=== PATIENT | male | born 1995 | race Caucasian/White ===

== ENCOUNTER 2023-04-22 08:13 | Outpatient (CLI) | payer MEDICAID, SELFPAY ==
--- NOTE | ~2023-04-22 | CT_ITS ---
EXAMINATION: CT diagnostic chest w con DATE: 04/22/2023 08:53 INDICATION: Chest pain, shortness of breath, cough TECHNIQUE: Transaxial computed tomographic images of the chest were obtained after the administration of 75 cc of Omnipaque 350 intravenous contrast. The dose-length product (DLP) was 124.62 mGy-cm. Ite rative reconstruction was used. COMPARISON: None FINDINGS: There is a large right hydropneumothorax. There is moderate collapse of the right lung. The re are airspace opacities in the right lower lobe with at least two visible areas of cavitation. Ther e are are airspace opacities anteriorly in the right middle and upper lobes. There is a cavitary nodu le in the right lung apex which erodes through the pleural surface and appears to tether the lung ape x to the visceral pleural surface. There is mild pneumomediastinum inferiorly near the esophagus and inferior vena cava. The heart size is normal. The visualized osseous structures are unremarkable. IMPRESSION: 1. Large right hydropneumothorax. 2. Multifocal right-sided pneumonia, worst in the right lower lobe, with areas of cavitation in the r ight lower lobe and right lung apex. The right apical cavitation erodes through the pleural surface. These findings were discussed with Juan Guevara PA-C at 0905 hours on 04/22/2023. Patient will be se nt to the emergency Department. Reviewed, dictated and finalized at location B. IMPRESSION: 1. Large right hydropneumothorax. 2. Multifocal right-sided pneumonia, worst in the right lower lobe, with areas of cavitation in the right lower lobe and right lung apex. The right apical cav itation erodes through the pleural surface. These findings were discussed with Juan Guevara PA-C at 0905 hours on 04/22/20. Patient will be sent to the emergency Department.
== END 2023-04-22 08:14 | disposition home or self-care (01) ==
PROVIDERS: PCP Family Medicine; Visit Provider Physician Assistant
DX: J98.4 Other disorders of lung (principal); R05.9 Cough, unspecified
CPT/HCPCS: 71260; Q9967

== ENCOUNTER 2023-04-22 09:20 | Emergency (ER) | payer MEDICAID, SELFPAY ==
[2023-04-22 09:31] VITALS: BP 139/80; PULSE 93; RESP 20; TEMP 36.7; O2SAT 97
--- NOTE | 2023-04-22 09:37 | ECG_ITS ---
Measurements Intervals [place] Rate: 90 P: 71 NE: 148 QRS: 71 QRSD: 96 T: 14 QT: 326 QTc: 400 Interpretive Statements SINUS RHYTHM POSSIBLE LEFT ATRIAL ENLARGEMENT INCOMPLETE RIGHT BUNDLE BRANCH BLOCK BASELINE ARTIFACT- I, III, AVL BORDERLINE ECG NO PREVIOUS ECG AVAILABLE FOR COMPARISON Electronically Signed On 04-22-2023 13:03:05 CDT by Nolan Flores D.O.
[2023-04-22 09:54] VITALS: PULSE 101
[2023-04-22 09:57] VITALS: O2SAT 98
[2023-04-22] MEDS: SODIUM CHLORIDE 0.9% IV 1,000 ML 999 ML IV CONT (10:00)
[2023-04-22 10:10] LABS: Basophils Absolute Auto 0.1 K/mm3 (0.0-0.1); Basophils Percent Auto 0.3 % (0.2-1.2); Eosinophils Absolute Auto 0.8 K/mm3 (0-0.3); Eosinophils Percent Auto 5.4 % (0-4.4); Hematocrit 46.2 % (42.0-52.0); Hemoglobin 16.1 g/dL (14.0-18.0); Immature Granulocyte Absolute 0.07 K/mm3 (0.00-0.031); Immature Granulocyte Percent A 0.5 % (0-0.5); Lymphocytes Absolute Auto 1.59 K/mm3 (0.9-3.2); Mean Corpuscular HGB Conc 34.8 g/dl (32-36); Mean Corpuscular Hemoglobin 32.6 pg (26-34); Mean Corpuscular Volume 93.5 fl (80-100); Mean Platelet Volume 10.4 fl (7.4-10.4); Monocytes Absolute Auto 1.7 K/mm3 (0.1-0.6); Monocytes Percent Auto 11.6 % (2.6-8.5); Neutrophils Absolute Auto 10.3 K/mm3 (1.3-6.7); Neutrophils Percent Auto 71.2 % (45.5-73.1); Platelet Count Result 319 k/mm3 (150-375); Red Blood Count 4.94 M/mm3 (4.6-6.20); Red Cell Distribution Width 12.4 % (11.5-14.5); White Blood Count 14.5 K/mm3 (4.5-10.0)
[2023-04-22 10:20] LABS: Lactic Acid Reflex 1.1 mmol/L (0.7-2.0)
[2023-04-22 10:23] LABS: Prothrombin Time 14.2 Seconds (11.1-14.7)
[2023-04-22] MEDS: levoFLOXacin 750 MG/D5W 150 ML 750 MG/150 ML BAG 100 MG IVPB (10:31)
[2023-04-22 10:34] VITALS: BP 108/56; PULSE 78; RESP 16; O2SAT 97
--- NOTE | 2023-04-22 10:47 | ED.SOB ---
HPI - SOB/Dyspnea General Chief Complaint: Shortness of Breath/Dyspnea Stated Complaint: from CT with concerns for collapsed lung? Time Seen by Provider: 04/22/23 09:24 Source: patient, family, RN notes reviewed and old records reviewed Mode of arrival: ambulatory Limitations: no limitations History of Present Illness HPI Narrative: This is a 27 year old male who presents for evaluation of right chest pain. He states he develop sharp right chest pain 1 week ago. He denies any proceeding trauma, vomiting or severe coughing. He is pain has continued so he was evaluated at an urgent care a few days ago. His PCP saw him today and ordered stat CT chest which shows large hydropneumothorax, pneumomediastinum. He reports night sweats, low grade fever for past couple of days. He denies nausea, vomiting, shortness of breath. He has mild dry cough. MD elicited complaint: cough and pain with inspiration Related Data Allergies Allergy/AdvReac Type Severity Reaction Status Date / Time Penicillins AdvReac Intermediate Difficulty Verified 04/22/23 09:20 Breathing amoxicillin [From Augmentin] AdvReac Mild Difficulty Verified 04/22/23 09:20 Breathing clavulanic acid AdvReac Mild Difficulty Verified 04/22/23 09:20 [From Augmentin] Breathing Review of Systems Constitutional: Constitutional: Reports chills, Reports fever(s) and Denies weakness Comments: night sweats Cardiovascular: Cardiovascular: Reports chest pain (right chest pain), Denies syncope, Denies rapid heart rate, Denies irregular heart rhythm, Denies leg edema and Denies dyspnea Respiratory: Respiratory: Denies chest congestion, Reports cough, Denies hemoptysis, Denies excessive phlegm production and Denies dyspnea Gastrointestinal: Gastrointestinal: Denies abdominal pain, Denies hematochezia, Denies diarrhea, Denies nausea and Denies vomiting Genitourinary: Genitourinary: Denies hematuria, Denies dysuria, Denies penile discharge and Denies testicular pain Musculoskeletal: Musculoskeletal: Denies joint swelling, Denies loss of height and Denies muscle weakness Neurologic: Denies syncope, Denies focal weakness and Denies weakness PMFSH Past Medical History Medical History Smoking Family History Family History Father Hypertension Mother Hypertension Depression Social History Social History Smoking packs per day: 1 Smoking cigarettes per day: 20.0 Smoking status: Current every day smoker Tobacco type: cigarettes Alcohol intake: current Substance use: never Living arrangements: with family Occupation/Education: occupation Gender identity (if verbalized by the patient): Male Sexual Orientation (if Verbalized by the Patient): Straight or Heterosexual Spiritual care concerns: No Exam Const: General: no acute distress and alert Orientation/consciousness: patient oriented x3 HENMT: Head: normal to inspection Eyes: EOM: EOMs intact bilaterally Chest: Chest palpation & inspection: normal inspection of the chest Resp: Effort & Inspection: normal respiratory effort Auscultation: diminished lung sounds (right side) Cardio: Rate: regular rate Rhythm: regular rhythm Heart sounds: no murmurs GI: GI Palp: Yes Soft to palpation, No Tenderness to palpation present (GI), No Guarding due to palpation present (GI) and No Rigid due to palpation Auscultation: normal bowel sounds Skin: General skin exam: normal color Rashes: no rashes Wounds: no wounds Neuro: General: patient oriented x3, moves all extremities and CN's II-XI intact bilaterally Extrem: General: normal to inspection Psych: Mental Status: mental status grossly normal Affect: normal affect Attitude: cooperative Course Reevaluation(s) Reevaluation #1: I reviewed plan and findings with patient and parents. They understand he will be transferre
[2023-04-22 11:20] VITALS: BP 110/66; PULSE 94; RESP 18; O2SAT 99
== END 2023-04-22 11:23 | disposition short-term general hospital (02) ==
PROVIDERS: Emergency Provider General Practice; PCP Family Medicine
DX: J94.8 Other specified pleural conditions (principal); J98.2 Interstitial emphysema; J98.4 Other disorders of lung; F17.210 Nicotine dependence, cigarettes, uncomplicated
CPT/HCPCS: 36415; 71260; 83605; 85025; 85610; 85730; 87040; 93005; 96361; 96365; 96367; 99285; J1956; J3370; J7030; Q9967

== ENCOUNTER 2023-11-10 13:59 | Outpatient (CLI) | payer MEDICAID, SELFPAY ==
[2023-11-10 15:32] LABS: Basophils Absolute Auto 0.1 K/mm3 (0.0-0.1); Basophils Percent Auto 0.9 % (0.2-1.2); Eosinophils Absolute Auto 0.4 K/mm3 (0-0.3); Eosinophils Percent Auto 5.3 % (0-4.4); Hematocrit 48.9 % (42.0-52.0); Hemoglobin 17.1 g/dL (14.0-18.0); Immature Granulocyte Absolute 0.02 K/mm3 (0.00-0.031); Immature Granulocyte Percent A 0.3 % (0-0.5); Lymphocytes Absolute Auto 2.21 K/mm3 (0.9-3.2); Lymphocytes Percent Auto 33.4 % (18.3-44.2); Mean Corpuscular Hemoglobin 31.9 pg (26-34); Mean Corpuscular Volume 91.2 fl (80-100); Mean Platelet Volume 10.3 fl (7.4-10.4); Monocytes Absolute Auto 0.6 K/mm3 (0.1-0.6); Monocytes Percent Auto 8.6 % (2.6-8.5); Neutrophils Absolute Auto 3.4 K/mm3 (1.3-6.7); Neutrophils Percent Auto 51.5 % (45.5-73.1); Platelet Count Result 310 k/mm3 (150-375); Red Blood Count 5.36 M/mm3 (4.6-6.20); Red Cell Distribution Width 12.9 % (11.5-14.5); White Blood Count 6.6 K/mm3 (4.5-10.0)
== END 2023-11-10 14:00 | disposition home or self-care (01) ==
LOC: ANHLAB 14:02
PROVIDERS: PCP Family Medicine; Visit Provider Physician Assistant
DX: K92.1 Melena (principal)
CPT/HCPCS: 36415; 85025

== ENCOUNTER 2024-12-15 19:31 | Emergency (ER) | payer MEDICAID, SELFPAY ==
[2024-12-15] VITALS (9 sets, daily range): BP systolic 106–132; BP diastolic 67–94; PULSE 43–78; RESP 14–28; TEMP 36.4; O2SAT 97–100
--- NOTE | ~2024-12-15 | CT_ITS ---
EXAMINATION: CTA chest PE abdomen pel DATE: 12/15/2024 21:22 INDICATION: Epigastric pain, history of ptx TECHNIQUE: Computed tomography angiography (CTA) of the chest was performed with 100 mL Omnipaque-350 intravenous contrast timed to evaluate the pulmonary arteries, followed by portal venous phase imagi ng of the abdomen and pelvis. Coronal maximum intensity projection 3D-reconstructions were created by the technologist. The dose-length product (DLP) was 362.14 mGy-cm. Automated exposure control and it erative reconstruction technique were employed. COMPARISON: X-ray chest, same date; CT chest 04/22/2023. FINDINGS: CHEST: Lung parenchyma and airways: 13 mm and 8 mm right upper lobe air cysts, which appear to be associated with adjacent bronchi. The 8 mm lesion is associated with nodular thickening of the wall. There is m ild thickening of the posterior wall of the 13 mm lesion. Bilateral apical pleural scarring. Volume l oss and scarring in the right lower lobe. Pleura: Very small volume simple right pleural fluid collection. Thoracic inlet, axillae and chest wall: No thyroid or soft tissue mass. Thoracic aorta: No significant dilation. No dissection. Mediastinum: Normal. Heart and pericardium: Normal. Coronary artery calcifications: Absent. Thoracic bones: No acute osseous finding. Pulmonary arteries: Study quality: Adequate. No pulmonary emboli detected. ABDOMEN/PELVIS: Liver: Normal. Biliary/Gallbladder: Minimal cholecystic fluid, no other inflammatory change No bile duct dilation. Pancreas: No mass or duct dilation. Spleen: Normal. Adrenals:No mass. Kidneys: No obstructing calcification or hydronephrosis. 8 mm indeterminate density left lower pole l esion, not included in the [id number] in the prior study. GI tract: No small or large bowel dilation. Normal appendix. Mesentery/Peritoneum: No ascites, mass, or free air. Retroperitoneum: No mass. Pelvis: Pelvic organs are within normal limits. Soft Tissues: Soft tissues and body wall unremarkable. Abdominopelvic bones: No acute osseous finding. IMPRESSION: No CT evidence of acute pulmonary embolus. Right upper lobe pneumatoceles, may represent persistent lesions from prior cavitary infection, and a ppear to communicate with adjacent bronchi. Active infection/malignancy is difficult to exclude. Post surgical change in the right lung. Small right pleural effusion. Mild pericholecystic fluid, a nonspecific finding. Consider acute cholecystitis in the differential. 8mm indeterminate left lower pole renal lesion, probably representing a hemorrhagic or proteinaceous cyst. Recommend nonemergent, outpatient CT or MRI without and with contrast for definitive characteri zation. Reviewed, dictated and finalized at location K. IMPRESSION: No CT evidence of acute pulmonary embolus. Right upper lobe pneumatoceles, may represent persistent lesions from prior cav itary infection, and appear to communicate with adjacent bronchi. Active infect ion/malignancy is difficult to exclude. Post surgical change in the right lung. Small right pleural effusion. Mild pericholecystic fluid, a nonspecific finding. Consider acute cholecystitis in the differential. 8mm indeterminate left lower pole renal lesion, probably representing a hemorrh agic or proteinaceous cyst. Recommend nonemergent, outpatient CT or MRI without and with contrast for definitive characterization.
--- NOTE | ~2024-12-15 | XR_ITS ---
EXAMINATION: XR chest 2V Exam Date/Time: 12/15/2024 19:53 CDT HISTORY: CHEST PAIN, patient states status post right lower lobe pneumonectomy Comparison: 11/11/2006. RESULT: Lines, tubes, and devices: None. Lungs and pleura: No focal consolidation, or pneumothorax. Lateral shift of the apex of the right he midiaphragm shadow. Suggestion of right hemithorax volume loss Mild right costophrenic angle blunting . Cardiomediastinal silhouette: Unremarkable. Other: No acute osseous or upper abdominal finding. IMPRESSION: Small right pleural effusion, likely with a subpulmonic component and/or postsurgical change in the r ight hemithorax and right lung. Reviewed, dictated and finalized at location K. IMPRESSION: Small right pleural effusion, likely with a subpulmonic component and/or postsu rgical change in the right hemithorax and right lung.
--- OUTSIDE RECORDS SUMMARY | 2024-12-15 19:33 | XMS_ITS | Clinical Summary ---
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 Gender Identity Not on file Sexual Orientation Not on file Obstetrics History Last Filed Vital Signs Vital Sign Reading Time Taken Comments Blood Pressure 132/72 04/17/2023 3:40 PM CDT Pulse 54 04/17/2023 3:40 PM CDT Temperature 36.9 C (98.4 F) 04/17/2023 3:40 PM CDT Respiratory Rate 16 04/17/2023 3:40 PM CDT Oxygen Saturation 100% 04/17/2023 3:40 PM CDT Inhaled Oxygen Concentration - - Weight 63.1 kg (139 lb 1.6 oz) 04/17/2023 3:40 P M CDT Height 170.2 cm (5' 7 ) 04/17/2023 3:40 PM CDT Body Mass Index 21.79 04/17/2023 3:40 PM CDT Plan of Treatment Health Maintenance Due Date Last Done Comments Depression Screening 1996 Hepatitis C Screening 1996 Varicella Vaccines (2 of 2 - 2-dose childhood series) 2000 06/17/1997 DTaP/Tdap/Td Vaccine (5 - Tdap) 2007 01/01/1998, 1996, 1996, Additional history exists Regular Well Visit/Exam 18-64 2014 Covid-19 Vaccine ( season) 2024 07/06/2021, 01/02/2021, 12/12/2020 Influenza Vaccine (#1) 2024 06/03/2018 Hepatitis B Screening Completed 1996 , 1996, 1996 HPV Vaccines Aged Out No longer eligi ble based on patient's age to complete this topic Pneumococcal vaccine <65 Aged Out No longer eligible based on patient's age to complete this topic Insurance IDPA Care Teams Machining Engineer Relationship Specialty Start Date End Date Kurtis Goins MD [address] [facility] [address] [place], [place] [id number] PCP - General Family Medicine 04/17/23
--- OUTSIDE RECORDS SUMMARY | 2024-12-15 19:33 | XMS_ITS | Referral Summary ---
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
--- OUTSIDE RECORDS SUMMARY | 2024-12-15 19:33 | XMS_ITS | Encounter Summary ---
Author Organization [facility] Health Address [address] [facility] [place] [address] Care Team Providers Care Multiple Sclerosis Nurse Name Role Phone Kurtis Goins MD Primary Care Provider [phone] Encounter Details Date Type Department Care Team (Late st Contact Info) Description 05/20/2023 Telephone [facility] - Centralized Scheduling [address] [place] [address] Romel Roberts MD [address] [facility] [place] [address] Social History Tobacco Use Types Packs/Day Years Used Date Smoking Tobacco: Every Day Cigarettes Smokeless Tobacco: Never Alcohol Use Standard Drinks/Week Comments Yes 0 (1 standard drink = 0.6 oz pur e alcohol) occ AUDIT-C Answer Date Recorded Q1: How often do you have a drink containing alcohol? Monthly or less 05/11/2023 Q2: How many drinks containi ng alcohol do you have on a typical day when you are drinking? Patient does not drink Q3: How often do you have si x or more drinks on one occasion? Less than monthly 05/11/2023 Overall Financial Resource Strain (CARDIA) Answe r Date Recorded How hard is it for you to pa y for the very basics like food, housing, medical care, and heating? Not hard at all 04/22/2023 [facility] [place] of Occupat ional Health - Occupational Stress Questionnaire Answer Date Recorded Do you feel stress - tense, restless, nervous, or anxious, or unable to sleep at night because your mind is troubled all the time - these days? Rather much 04/22/2023 Hunger Vital Sign Answer Date Recorded Within the past 12 months, y ou worried that your food would run out before you got the money to buy more. Never true 04/22/20 23 Within the past 12 months, t he food you bought just didn't last and you didn't have money to get more. Never true 04/22/2023 PRAPARE - Transportation Answer Date Re corded In the past 12 months, has l ack of transportation kept you from medical appointments or from getting medications? No 03/2023 In the past 12 months, has l ack of transportation kept you from meetings, work, or from getting things needed for daily living? No 04/22/2023 Housing Stability Vital Sign Answer Spencer e Recorded In the last 12 months, was t here a time when you were not able to pay the mortgage or rent on time? No 04/22/2023 In the last 12 months, how many places have you lived? 1 04/22/2023 In the last 12 months, was t here a time when you did not have a steady place to sleep or slept in a long term (including now)? 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 Answer Date of Assessment Author No 05/01/2023 10:07 AM Sandro Roque RN * Is person blind or have serious difficulty seeing? Answer Date of Assessment Author No 05/01/2023 10:07 AM Sandro Roque RN * Does person have serious difficulty walking/climbing stairs? Answer Date of Assessment Author No 05/01/2023 10:07 AM Sandro Roque RN * Does person have difficulty dressing/bathing? Answer Date of Assessment Author No 05/01/2023 10:07 AM Sandro Roque RN * Does person have difficulty doing errands alone? Answer Date of Assessment Author No 05/01/2023 10:07 AM Sandro Roque RN documented as of this encounter Mental Status * Does person have difficulty concentrating/remembering/making decisions? Answer Entry Date Author No 05/01/2023 10:07 AM CDT Sandro Fields RN documented in this encounter Plan of Treatment Upcoming Encounters Date Type Department Care Team (Late st Contact Info) Description 12/26/2024 12:30 PM CDT Hospital Encounter [facility] [address] [place] [address] Lorena Watkins MD [address] [place] [address] [address] [place] [address] Surgery General 12/26/2024 12:30 PM CDT - 12/26/2024 12:45 PM CDT Surgery [facility] [place] [address] Lorena Watkins MD [address] [place] [address] [address] [place] [address] EGD w/ tina 01/15/2025 1:30 PM CDT Office Visit [facility] - ENT [address] [place] [phone] Emiliano Tilley MD [address] [place] [address] [place] [address] 03/06/2025 11:30 AM CDT Office Visit [facility] - GI [address] [place] [address], [place] [phone] Jolanta Williamson, ORDER CLERK-BOARD CATCHER [address] [place] [phone] 04/03/2025 11:00 AM CDT Office Visit [facility] - Allergy [address] [place] [address] [place] [phone] Kolby Meng MD [address] [place] [phone] Scheduled Procedures Name Priority Associated Diagnoses Date/Ti ca ESOPHAGOGASTRODUODENOSCOPY ( EGD) DIAGNOSTIC Esophagitis 12/26/2024 12:30 PM CDT documented as of this encounter Visit Diagnoses Not on filedocumented in this encounter Care Teams Multiple Sclerosis Nurse Relationship Specialty Start Date End Date Kurtis Goins MD [address] [place] [id number] PCP - General Family Medicine 04/22/23 documented as of this encounter
--- OUTSIDE RECORDS SUMMARY | 2024-12-15 19:33 | XMS_ITS | Encounter Summary ---
Author Organization [facility] Health Address [address] [facility] [place] [address] Care Team Providers Care Neurophysiological Technician Name Role Phone Kurtis Goins MD Primary Care Provider [phone] Reason for Visit * Reason Onset Date Comments Med Question 05/23/2023 Encounter Details Date Type Department Care Team (Late st Contact Info) Description 05/23/2023 Telephone [facility] - Centralized Scheduling [address] [place] [address] Romel Roberts MD [address] [facility] [place] [address] Med Question Social History Tobacco Use Types Packs/Day Years [...] and heating? Not hard at all 04/22/2023 [facility] [place] of Occupat ional Health - Occupational Stress [...] place to sleep or slept in a jail (including now)? 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 Answer Entry Date Author No 05/01/2023 10:07 AM Sandro Roque RN documented in this encounter Miscellaneous Notes * Telephone Encounter - Galdino Rios Chandni - 05/23/2023 12:31 PM CDT Pt mother is calling stating the her son Tom is having issues keeping his Flucanazole 100mg down. He is only able to take some of the medication before he starts to feel like he is going to throw up, pt mother is wanting to know what's she need to do she states she crushes the medication and adds it to apple sauce or pudding and nothing is helping pt would like a return call back documented in this encounter Plan of Treatment Upcoming Encounters Date Type Department Care Team (Late st Contact Info) Description 12/26/2024 12:30 PM CDT Hospital Encounter [facility] [address] [place] [address] Lorena Watkins MD [address] [place] [address] [address] [place] [phone] Surgery General 12/26/2024 12:30 PM CDT - 12/26/2024 12:45 PM CDT Surgery [facility] [address] [place] [phone] Lorena Watkins MD [address] [place] [address] [address] [place] [address] EGD w/ tina 01/15/2025 1:30 PM CDT Office Visit [facility] - ENT [address] [place] [phone] Emiliano Tilley MD [address] [place] [address] [place] [address] 03/06/2025 11:30 AM CDT Office Visit [facility] - GI [address] [facility], [place] [address] Jolanta Williamson, UPPER INSPECTOR-REAL ESTATE FIRM MANAGER [address] [place] [address] 04/03/2025 11:00 AM CDT Office Visit [facility] - Allergy [address] [facility], [place] [address] Kolby Meng MD [address] [place] [address] Scheduled Procedures Name Priority Associated Diagnoses Date/Ti me ESOPHAGOGASTRODUODENOSCOPY ( EGD) DIAGNOSTIC Esophagitis 12/26/2024 12:30 PM CDT documented as of this encounter Visit Diagnoses Not on filedocumented in this encounter Care Teams Neurophysiological Technician Relationship Specialty Start Date End Date Kurtis Goins MD [address] [place] [address] PCP - General Family Medicine 04/22/23 documented as of this encounter
--- OUTSIDE RECORDS SUMMARY | 2024-12-15 19:33 | XMS_ITS | Clinical Summary ---
Author Organization [facility] Address [address] [place] [address] Care Team Providers Care Foot Caster Name Role Phone Kurtis Goins MD Primary Care Provider [phone] Source Comments [facility],non-owned Affiliates and Associated Physician Practices is amultiple site organization consisting of ambulatory clinics and hospital sitesin [place], [place], [place] and [place]. This disclosure is being madepursuant to the Care Everywhere program and may not contain all information available regarding this patient. Last updated 18.[facility] Allergies Active Allergy Reactions Criticality Noted Date Comments Augmentin Anaphylaxis High 04/22/2023 Penicillins Anaphylaxis High 04/22/2023 Sulfamethoxazole W-Trimethoprim Anaphylaxis High 03/2023 Medications * Be aware that medications may not be up to date on this document. Alwaysverify current medications with the patient. isavuconazonium (Cresemba) 186 MG capsule Take 2 (two) capsules by mouth every 8 hours for 2 days, THEN 2 (two) capsules once daily for 90 days. 72 capsule 4 5 4:01 PM CDT 07/24/20 24 025 Active Additional Information Patient taking differently: 2 (two) capsules once daily for 90 days., Reported on 11/28/2024 dupilumab (Dupixent) 300 MG/2ML prefilled penIndications: Eosinophilic esophagitis Inject 2 mL subcutaneously every 7 days (once a week) 24 mL 12/12/19 25 Active oxyCODONE, immediate release, (Roxicodone) 5 MG tabletIndicatio ns:Trapped lung Take 1 (one) tablet by mouth every 4 hours as needed 16 tablet 11/17/19 24 024 Discontinu ed(No Pharm No AVS) budesonide 0.1 mg/ml compounded suspensionIndic ations:Esophagi tis determined by endoscopy Take 20 mL by mouth 2 times daily for 90 days SHAKE WELL 1200 mL 2 04/19/20 24 025 Discontinu ed(List Clean-Up) dupilumab (Dupixent) 300 MG/2ML prefilled penIndications: Esophagitis determined by endoscopy Inject 2 mL subcutaneously every 7 days for 12 doses 24 mL 09/12/19 25 025 dupilumab (Dupixent) 300 MG/2ML prefilled penIndications: Eosinophilic esophagitis Inject 2 mL subcutaneously every 7 days (once a week) 12 mL 12/11/19 25 025 Discontinu ed(Reorder ) dupilumab (Dupixent) 300 MG/2ML prefilled penIndications: Eosinophilic esophagitis Inject 2 mL subcutaneously every 7 days (once a week) 12 mL 12/11/19 25 025 Discontinu ed(Reorder ) Hospital, Clinic, or Other Facility Administered Medication Ordered Dose Route Frequency Start Date End Date Status dupilumab (Dupixent) prefilled pen 300 mgIndications:Esophagiti s determined by endoscopy 300 mg SC EVERY 7 DAYS 08/28/2024 11/20/2024 Ended Active Problems Problem Noted Date Diagnosed Date Eosinophilic esophagitis 05/24/2024 Pleural effusion 11/28/2023 Coccidioidomycosis, unspecified 11/28/2023 Colitis 05/13/2023 Chest pain, unspecified type 05/12/2023 Diarrhea of infectious origin 05/12/2023 Cavitary lesion of lung 04/22/2023 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 difficile colitis 05/12/2023 023 Encounters Date Type Department Care Team Description 12/12/2024 Telephone [facility] [address] [place] [address] Marlene Ray, PharmD Medication Prior Auth Request 12/11/2024 Telephone [facility] [address] [place] [phone] Jolanta Williamson APRN-CNP Medication Problem 12/11/2024 Telephone [facility] [address] [place] [address] [phone] Cyril An, sheet metal shop helper Issue 12/11/2024 Refill [facility] [address] [place] [address] [phone] Cyril An, WORKS MANAGER REFILL 12/10/2024 Refill [facility] - Nephrology [address] [place] [address] [phone] Jolanta Williamson APRN-CNP MEDICATION REFILL 12/10/2024 Orders Only [facility] [address] [place] [address] [phone] Jolanta Williamson APRN-CNP Eosinophilic esophagitis 12/10/2024 Refill [facility] [address] [place] [address] [phone] Cyril An, SHARONDA Encounter Opened In Error 12/06/2024 Telephone [facility] - Nephrology [address] [place] [address] [phone] Rebecca Tomlinson, SHARONDA Concerns 12/06/2024 Travel 12/04/2024 Telephone [facility] [address] [place] [address] [phone] Cyril An, RN Follow-up 12/04/2024 Patient Outreach [facility] [address] [place] [phone] Bhumika Luna RN 12/04/2024 Orders Only [facility] [address] [place] [address] [phone] Jolanta Williamson APRN-CNP Esophagitis determined by endoscopy 12/04/2024 Telephone [facility] [address] [place] [phone] Jolanta Williamson APRN-CNP Follow-up 11/29/2024 Orders Only [facility] [address] [place] [phone] Jolanta Williamson APRN-CNP Esophagitis determined by endoscopy 11/28/2024 12:37 PM CDT - 11/28/2024 11:59 PM CDT Hospital Encounter [facility] [address] [place] [phone] Romel Roberts MD Discharge Disposition: Home or Self Care 11/28/2024 12:00 PM CDT - 11/28/2024 12:36 PM CDT Hospital Encounter [facility] [address] [place] [phone] Romel Roberts MD Discharge Disposition: Home or Self Care 11/28/2024 11:30 AM CDT Office Visit [facility] [address] [place] [phone] Jolanta Williamson APRN-CNP Esophagitis determined by endoscopy (Primary Dx); Admission for therapeutic drug monitoring; Immunosuppression due to drug therapy (HCC) 11/28/2024 Travel 10/17/2024 11:00 AM EMERGENCY COMMUNICATIONS OPERATOR Office Visit [facility] - Infectious Disease [address] [place] [phone] Romel Roberts MD 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); Cavitary lesion of lung; Eosinophilic esophagitis 10/17/2024 Travel 09/27/2024 10:00 AM EMERGENCY COMMUNICATIONS OPERATOR Office Visit [facility] - Allergy [address] [place] [phone] Kolby Meng MD Eosinophilic esophagitis (Primary Dx); Coccidioidomycosis; Penicillin allergy 09/27/2024 Travel 09/19/2024 10:30 AM EMERGENCY COMMUNICATIONS OPERATOR Clinical Support [facility] [place] [address] [place] [phone] Jolanta Williamson APRN-YASH Esophagitis determined by endoscopy 09/19/2024 Travel 09/18/2024 Telephone [facility] [address] [place] [phone] Cyril An, SHARONDA Follow-up 09/17/2024 Telephone [facility] - Nephrology [address] [place] [phone] Rebecca Tomlinson, SHARONDA Concerns from Last 3 Months Family History Medical History Relation Name Comments Allergic Rhinitis Father Allergies - Food Mother Eczema Mother Relation Name Status Comments Father Mother Social History Tobacco Use Types Packs/Day Years Used Date Smoking Tobacco: Former Cigarettes Q uit: 04/2023 Smokeless Tobacco: Never Tobacco Cessation:Counseling Given: Not Answered Alcohol Use Standard Drinks/Week Comments Yes 0 (1 standard drink = 0.6 oz pure alcohol) very rarely - special occasions AUDIT-C Answer Date Recorded Q1: How often do you have a drink containing alcohol? Never 07/11/2024 Q2: How many drinks containi ng alcohol do you have on a typical day when you are drinking? Patient does not drink Q3: How often do you have si x or more drinks on one occasion? Never 07/11/2024 Overall Financial Resource Strain (CARDIA) Answe r Date Recorded How hard is it for you to pa y for the very basics like food, housing, medical care, and heating? Not hard at all 11/28/2023 PHQ-2 Answer Date Recorded Patient Health Questionnaire-2 Score 0 07/24/2024 [facility] Occupat ional Health - Occupational Stress Questionnaire Answer Date Recorded Do you feel stress - tense, restless, nervous, or anxious, or unable to sleep at night because your mind is troubled all the time - these days? Only a little 11/28/2023 Hunger Vital Sign Answer Date Recorded Within the past 12 months, y ou worried that your food would run out before you got the money to buy more. Never true 11/28/19 24 Within the past 12 months, t he food you bought just didn't last and you didn't have money to get more. Never true 11/28/2023 PRAPARE - Transportation Answer Date Re corded In the past 12 months, has l ack of transportation kept you from medical appointments or from getting medications? No 11/13 In the past 12 months, has l ack of transportation kept you from meetings, work, or from getting things needed for daily living? No 11/28/2023 Housing Stability Vital Sign Answer Spencer e Recorded In the last 12 months, was t here a time when you were not able to pay the mortgage or rent on time? No 11/28/2023 In the last 12 months, how many places have you lived? 1 11/28/2023 In the last 12 months, was t here a time when you did not have a steady place to sleep or slept in a half-way (including now)? No 11/28/2023 Sex and Gender Information Value Date Recorded Sex Assigned at Not on file Legal Sex Male 5:39 AM EMERGENCY COMMUNICATIONS OPERATOR Gender Identity Not on file Sexual Orientation Not on file Last Filed Vital Signs Vital Sign Reading Time Taken Comments Blood Pressure 125/81 11/28/2024 11:37 AM CDT Pulse 54 11/28/2024 11:37 AM CDT Temperature 36.6 C (97.9 F) 11/28/2024 11:37 AM CDT Respiratory Rate 16 10/17/2024 10:45 AM EMERGENCY COMMUNICATIONS OPERATOR Oxygen Saturation 100% 11/28/2024 11:37 AM CDT Inhaled Oxygen Concentration 21% 04/24/2023 9 :16 PM CDT Weight 57.7 kg (127 lb 3.2 oz) 11/28/2024 11:37 AM CDT Height 170.2 cm (5' 7 ) 11/28/2024 11:37 AM CDT Body Mass Index 19.92 11/28/2024 11:37 AM CDT Plan of Treatment Upcoming Encounters Date Type Department Care Team (Late st Contact Info) Description 12/26/2024 12:30 PM CDT Hospital Encounter [facility] [address] [place] [phone] Lorena Watkins MD [address] [facility] [place] [phone] Surgery General 12/26/2024 12:30 PM CDT - 12/26/2024 12:45 PM CDT Surgery [facility] [address] [place] [phone] Lorena Watkins MD [address] [place] [address] [address] [place] [phone] EGD w/ palagiri 01/15/2025 1:30 PM CDT Office Visit [facility] - ENT [address] [place] [address], [place] [phone] Emiliano Tilley MD [address] [place] [address] [place] [address] 03/06/2025 11:30 AM CDT Office Visit [facility] - GI [address] [place] [address], [place] [phone] Jolanta Williamson, LIGHT OUT EXAMINER-LOSS PREVENTION LEAD [address] [place] [phone] 04/03/2025 11:00 AM CDT Office Visit [facility] - Allergy [address] [place] [address] [place] [phone] Kolby Meng MD [address] [place] [phone] Scheduled Procedures Name Priority Associated Diagnoses Date/Ti me ESOPHAGOGASTRODUODENOSCOPY ( EGD) DIAGNOSTIC Esophagitis 12/26/2024 12:30 PM CDT Health Maintenance Due Date Last Done Comments DTAP/TDAP/TD VACCINES (1 - Tdap) 2015 HEPATITIS B VACCINE (1 of 3 - 19+ 3-dose series) 2015 PNEUMOCOCCAL VACCINE (1 of 2 - PCV) 2015 ZOSTER VACCINE (1 of 2) 2015 COVID-19 VACCINE (4 - 2023-2 5 season) 2024 07/06/2021, 01/02/2021, 12/12/2020 DEPRESSION SCREENING 08/15/2024 09/19/2023, 05/30/2023 INFLUENZA VACCINE (Season Ended) 2025 06/03/2018 HEPATITIS C SCREENING Completed 04/26/2023 HIV SCREENING Completed 04/26/2023 HIB VACCINE Aged Out No longer eligi ble based on patient's age to complete this topic HPV VACCINE Aged Out No longer eligi ble based on patient's age to complete this topic MENINGOCOCCAL (Group B) VACCINE SHARED DECISION-MAKING Aged Out No longer eligible based on patient's age to complete this topic MENINGOCOCCAL GROUPS A/C/Y/W VACCINE Aged Out No longer eligible b ased on patient's age to complete this topic Goals Goal Patient Goal Type Associated Problems Recent Progress Patient-Stated? Author Medication Management General On track( 025 11:31 AM CDT) Cyril Evans, RN Note: Expected end date: ongoing Interventions: Take all medications as prescribed Let your doctor know right away about any changes in your medications Make sure to request a refill of your medication at least one week prior to your last dose Procedures Procedure Name Priority Date/Time Associated Diagnosis Comments QUANTIFERON-TB GOLD PLUS 4-TUBE Routine 11/28/2024 1:12 PM CDT Immunosuppression due to drug therapy (HCC) HEPATITIS B SURFACE ANTIBODY QUANT Routine 11/28/2024 1:12 PM CDT Esophagitis determined by endoscopy Immunosuppression due to drug therapy (HCC) HEPATITIS B CORE ANTIBODY TOTAL Routine 11/28/2024 1:12 PM CDT Esophagitis determined by endoscopy Immunosuppression due to drug therapy (HCC) HEPATITIS B SURFACE ANTIGEN W RFLX CONFIRMATION Routine 11/28/2024 1:12 PM CDT Esophagitis determined by endoscopy Immunosuppression due to drug therapy (HCC) COMPREHENSIVE METABOLIC PANEL Routine 11/28/2024 1:12 PM CDT Esophagitis determined by endoscopy Immunosuppression due to drug therapy (HCC) CBC W AUTO DIFFERENTIAL Routine 11/28/2024 1:12 PM CDT Esophagitis determined by endoscopy Immunosuppression due to drug therapy (HCC) CT CHEST W CONTRAST Routine 11/28/2024 1 2:33 PM CDT 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 Eosinophilic esophagitis CREATININE - POCT INTERFACED Routine 11/28/2024 12:20 PM CDT URINALYSIS W/MICROSCOPIC REFLEX TO CULTURE Routine 10/17/2024 11:54 AM EMERGENCY COMMUNICATIONS OPERATOR 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 Eosinophilic esophagitis HEPATITIS C AB SCREEN RFLX NAAT QUANT Routine 04/26/2023 4:06 PM CDT HIV-1 HIV-2 ANTIBODY + HIV P24 AG PANEL Routine 04/26/2023 4:06 PM CDT from Last 3 Months or Most Recently Relevant to Health Maintenance Results * QUANTIFERON-TB GOLD PLUS 4-TUBE (11/28/2024 1:12 PM CDT) Pathologist [facility] QuantiFERON Mitogen Minus NIL 9.98 IU/mL 12/01/2024 12:40 AM CDT [facility] ([facility]) QuantiFERON Nil Value 0.02 IU/mL 12/01/2024 12:40 AM CDT [facility] ([facility] QuantiFERON Plus TB1 Minus NIL 0.01 <=0.34 IU/mL 12/01/2024 12:40 AM CDT [facility] ([facility]) QuantiFERON Plus TB2 Minus NIL 0.01 <=0.34 IU/mL 12/01/2024 12:40 AM CDT [facility] ([facility]) QuantiFERON-TB Gold Plus Negative Negative 12/01/2024 12:40 AM CDT [facility] ([facility]) Comment: INTERPRETIVE INFORMATION:Quantiferon TB Gold Plus Interferon gamma release is measured for specimens from each of the four collection tubes. A qualitative result (Negative, Positive, or Indeterminate) is based on interpretation of the four values: NIL, MITOGEN minus NIL (MITOGEN-NIL), TB1 minus NIL (TB1-NIL), and TB2 minus NIL (TB2-NIL). The NIL value represents nonspecific reactivity produced by the patient specimen. The MITOGEN-NIL value serves as the positive control for the patient specimen, demonstrating successful lymphocyte activity. The TB1-NIL tube specifically detects CD4+ lymphocyte reactivity, specifically stimulated by the TB1 antigens. The TB2-NIL tube detects both CD4+ and CD8+ lymphocyte reactivity, stimulated by TB2 antigens. An overall Negative result does not completely rule out TB infection. A false-positive result in the absence of other clinical evidence of TB infection is not uncommon. Refer to: Updated Guidelines for Using Interferon Gamma Release Assays to Detect Mycobacterium tuberculosis Infection -- [place], 2010 (http://www.cdc.gov/mmwr/preview/mmwrhtml/hg8186w8.htm), for more information concerning test performance in low-prevalence populations and use in occupational screening. Performed By: [facility] [address] [place] [address] Print Shop Manager: Flako Pascual MD, PhD CLIA Number: [id number] Blood BLOOD SPECIMEN / Unknown Lab Venipuncture / Unknown 11/28/2024 1:12 PM CDT 11/28/2024 1:24 PM CDT Jolanta Williamson LIGHT OUT EXAMINER-LOSS PREVENTION LEAD LAB - CHEMISTRY ORDERABLES Final Result [facility] ([facility]) [address] [place] [address] * (ABNORMAL) HEPATITIS B SURFACE ANTIBODY QUANT (11/28/2024 1:12 PM CDT) Hepatitis B Virus Surface Antibody Reactive( A) Non-react july 11/28/2024 2:19 PM CDT [facility] Comment: > 12 mIU/mL Hepatitis B surface Antibody (HBsAb). Reactive for HBsAb - individual is considered immune to Hepatitis B Virus infection. Hepatitis B Surface Antibody Quantitative 110.0(H) <8.0 mIU/mL 11/28/2024 2:19 PM CDT [facility] Comment: Hepatitis B Surface Antibody Numeric Result Interpretation: Nonreactive: <8.0 mIU/mL Indeterminate: 8.0 - 12.0 mIU/mL Reactive: >12.0 mIU/mL Blood BLOOD SPECIMEN / Unknown Lab Venipuncture / Unknown 11/28/2024 1:12 PM CDT 11/28/2024 1:24 PM CDT [facility] - 11/28/2024 2:19 PM CDT This assay should not be used for blood, plasma, or tissue donor screening. This assay is not recommended for neonates born to HBV-infected or suspected HBV-infected mothers. us Jolanta Williamson LIGHT OUT EXAMINER-LOSS PREVENTION LEAD LAB - SEROLOGY O RDERABLES Final Result [facility] [address] [place] [phone], [facility] [phone] * (ABNORMAL) CBC W/ DIFFERENTIAL (11/28/2024 1:12 PM CDT) WBC 5.4 4.0 - 10.7 x10E9/L 11/28/2024 1:36 PM CDT [facility] RBC Count 4.78 4.30 - 5.80 x10E12/L 11/28/2024 1:[address] [facility] Hemoglobin 15.9 13.3 - 17.5 g/dL 11/28/2024 1:36 PM T [facility] Hematocrit 43.5 38.7 - 51.1 % 11/28/2024 1:36 PM T [facility] MCV 91.0 80.0 - 98.0 fL 11/28/2024 1:36 PM CDT [facility] MCH 33.3 26.7 - 33.6 pg 11/28/2024 1:36 PM CDT [facility] MCHC 36.6(H) 31.7 - 36.3 g/dL 11/28/2024 1:36 PM T [facility] RDW-CV 12.7 11.3 - 14.8 % 11/28/2024 1:[address] [facility] Platelet Count 247 150 - 420 x10E9/L 11/28/2024 1:[address] [facility] MPV 10.0 7.8 - 11.4 fL 11/28/2024 1:[address] [facility] Neutrophil % 51.0 41.0 - 74.0 % 11/28/2024 1:[address] [facility] Lymphocyte % 34.2 17.0 - 47.0 % 11/28/2024 1:[address] [facility] Monocyte % 8.8 3.0 - 11.0 % 11/28/2024 1:[address] [facility] Eosinophil % 5.4 0.0 - 7.0 % 11/28/2024 1:[address] [facility] Basophil % 0.4 0.0 - 1.6 % 11/28/2024 1:[address] [facility] Immature Granulocytes % 0.2 0.0 - 1.0 % 11/28/2024 1:[address] [facility] Neutrophil Absolute 2.73 1.60 - 7.50 x10E9/L 11/28/2024 1:[address] [facility] Lymphocyte Absolute 1.83 1.00 - 4.40 x10E9/L 11/28/2024 1:[address] [facility] Monocyte Absolute 0.47 0.15 - 1.00 x10E9/L 11/28/2024 1:[address] [facility] Eosinophil Absolute 0.29 0.00 - 0.60 x10E9/L 11/28/2024 1:[address] [facility] Basophil Absolute 0.02 0.00 - 0.13 x10E9/L 11/28/2024 1:[address] [facility] Blood BLOOD SPECIMEN / Unknown Lab Venipuncture / Unknown 11/28/2024 1:12 PM CDT 11/28/2024 1:29 PM T us Jolanta Williamson LIGHT OUT EXAMINER-LOSS PREVENTION LEAD LAB - HEMATOLOGY ORDERABLES Final Result [facility] [address] [place] [address], [facility] [phone] * (ABNORMAL) COMPREHENSIVE METABOLIC PANEL (11/28/2024 1:12 PM [facility]) BUN 11 7 - 26 mg/dL 11/28/2024 1:[address] [facility] Creatinine 0.83 0.71 - 1.16 mg/dL 11/28/2024 1:[address] [facility] Sodium 142 136 - 145 mmol/L 11/28/2024 1:[address] [facility] Potassium 4.2 3.5 - 4.5 mmol/L 11/28/2024 1:[address] [facility] Chloride 103 98 - 107 mmol/L 11/28/2024 1:[address] [facility] CO2 27 22 - 29 mmol/L 11/28/2024 1:[address] [facility] Glucose 89 70 - 99 mg/dL 11/28/2024 1:[address] [facility] Calcium 9.8 8.4 - 10.2 mg/dL 11/28/2024 1:[address] [facility] Protein Total 7.4 6.0 - 8.3 g/dL 11/28/2024 1:[address] [facility] Albumin 5.2(H) 3.4 - 5.0 g/dL 11/28/2024 1:[address] [facility] Bilirubin Total 0.9 0.2 - 1.2 mg/dL 11/28/2024 1:[address] [facility] Alkaline Phosphatase 81 40 - 150 U/L 11/28/2024 1:[address] [facility] ALT 21 5 - 55 U/L 11/28/2024 1:[address] [facility] AST 17 5 - 34 U/L 11/28/2024 1:[address] [facility] Anion Gap 12 6 - 16 11/28/2024 1:[address] [facility] BUN/Creatinine Ratio 13 7 - 23 11/28/2024 1:[address] [facility] Osmolality Calculated 293 275 - 295 mOsm/kg 11/28/2024 1:59 PM CDT [facility] Albumin/Globulin Ratio 2.4(H) 1.1 - 2.3 11/28/2024 1:59 PM CDT [facility] eGFR by CKD-EPI >90 >=90 mL/min/1.7 3 m2 11/28/2024 1:59 PM CDT [facility] Blood BLOOD SPECIMEN / Unknown Lab Venipuncture / Unknown 11/28/2024 1:12 PM CDT 11/28/2024 1:29 PM CDT Jolanta Williamson LIGHT OUT EXAMINER-LOSS PREVENTION LEAD LAB - CHEMISTRY ORDERABLES Final Result [address] [address], [facility] [phone] * HEPATITIS B CORE ANTIBODY TOTAL (11/28/2024 1:12 PM CDT) HBc Antibody Total Non-reacti ve Non-reacti ve 11/28/2024 2:19 PM CDT [facility] Blood BLOOD SPECIMEN / Unknown Lab Venipuncture / Unknown 11/28/2024 1:12 PM CDT 11/28/2024 1:24 PM CDT Jolanta Williamson APRN-LOSS PREVENTION LEAD LAB - CHEMISTRY ORDERABLES Final Result [address] [address], [place] [phone] * HEPATITIS B SURFACE ANTIGEN W RFLX CONFIRMATION (11/28/2024 1:12 PM CDT) Hepatitis B Virus Surface Antigen Non-reacti ve Non-reacti ve 11/28/2024 2:19 PM CDT [facility] Blood BLOOD SPECIMEN / Unknown Lab Venipuncture / Unknown 11/28/2024 1:12 PM CDT 11/28/2024 1:24 PM CDT Jolanta Stevensonell LIGHT OUT EXAMINER-LOSS PREVENTION LEAD LAB - CHEMISTRY ORDERABLES Final Result [facility] [address] [place] [address], [facility] [phone] * CT Chest W Contrast (11/28/2024 12:33 PM CDT) Anatomical Region Laterality Modality Chest Computed Tomogra phy 11/28/2024 3:33 PM CDT Impressions 11/28/2024 9:13 PM CDT Impression: 1.Resolution of previously seen cavitary lesions in the right upper lobe with residual scarring. No new lesions are seen. 2.Redemonstrated postsurgical changes right lower lobe lobectomy. > Dictated by Johanna Kraft MD, (Brokerage Manager). I, Kenny Mcnamara MD have personally reviewed and interpreted this examination/study. 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 Findings: Lower Neck and Axillae: The thyroid enhances evenly. No axillary lymphadenopathy. Lungs: Resolution of previously seen cavitary lesions in the right upper lobe with residual scarring. Redemonstration of postsurgical changes from right lower lobe lobectomy. No suspicious pulmonary nodules are identified. No pleural fluid or pneumothorax is present. Heart and Pericardium: The cardiac chambers are normal in size. No pericardial fluid or thickening is present. Mediastinum and Erma: No enlarged lymph nodes are present. Thoracic Vasculature: No vascular abnormality is present. Bones and Chest Wall: Bone windows demonstrate no suspicious lytic or blastic lesions. The visible osseous structures are intact. Schmorl's nodes are seen in the spine. Upper Abdomen: The visible portions of the upper abdominal organs are normal. 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 Findings: Lower Neck and Axillae: The thyroid enhances evenly. No axillary lymphadenopathy. Lungs: Resolution of previously seen cavitary lesions in the right upper lobewith residual scarring. Redemonstration of postsurgical changes from rightlower lobe lobectomy. No suspicious pulmonary nodules are identified. Nopleural fluid or pneumothorax is present. Heart and Pericardium: The cardiac chambers are normal in size. No pericardial fluid orthickening is present. Mediastinum and Erma: No enlarged lymph nodes are present. Thoracic Vasculature: No vascular abnormality is present. Bones and Chest Wall: Bone windows demonstrate no suspicious lytic or blastic lesions. The visible osseous structures are intact. Schmorl's nodes are seen in the spine. Upper Abdomen: The visible portions of the upper abdominal organs are normal. Impression: 1.Resolution of previously seen cavitary lesions in the right upper lobe with residual scarring. No new lesions are seen. 2.Redemonstrated postsurgical changes right lower lobe lobectomy. > Dictated by Johanna Kraft MD, (Brokerage Manager). I, Kenny Mcnamara MD have personally reviewed and interpreted this examination/study. > Interpreting Provider: Kenny Mcnamara MD on 11/28/2024 9:13 PM Romel Roberts MD CT ORDERABLES Final Result * CREATININE - POCT INTERFACED (11/28/2024 12:20 PM CDT) Creatinine POCT 0.61 0.30 - 1.30 mg/dL 11/28/2024 12:25 PM CDT [facility] eGFR >90 >=90 mL/min/1.7 3 m2 11/28/2024 12:25 PM T [facility] Blood BLOOD SPECIMEN / Unknown 11/28/2024 12:20 PM CDT 11/28/2024 12:25 PM CDT Romel Roberts MD LAB - POINT OF CARE ORDERABLES Final Result [facility] [address] [place] [address], [facility] [phone] * (ABNORMAL) URINALYSIS W/MICROSCOPIC REFLEX TO CULTURE (10/17/2024 11:54 AM EMERGENCY COMMUNICATIONS OPERATOR) Color UA Yellow Straw, Yellow 10/17/2024 12:47 PM [facility] Clarity UA Slt Cloudy(A) Clear 10/17/2024 12:47 PM [facility] Specific Ruth UA 1.027 1.005 - 1.030 10/17/2024 12:47 PM [facility] pH UA 5.0 5.0 - 8.0 pH 10/17/2024 12:47 PM [facility] Protein UA Negative Negative 10/17/2024 12:47 PM [facility] Glucose UA Negative Negative 10/17/2024 12:47 PM [facility] Ketone UA Negative Negative 10/17/2024 12:47 PM [facility] Bilirubin UA Negative Negative 10/17/2024 12:47 PM [facility] Blood UA Negative Negative 10/17/2024 12:47 PM [facility] Nitrite UA Negative Negative 10/17/2024 12:47 PM [facility] Leukocyte Esterase Negative Negative 10/17/2024 12:47 PM [facility] Urobilinogen UA Negative Negative mg/dL 10/17/2024 12:47 PM [facility] RBC UA 0-2 None Seen, 0-2, 3-5 /HPF 10/17/2024 12:47 PM [facility] WBC UA 0-5 None Seen, 0-5 /HPF 10/17/2024 12:47 PM [facility] Squamous Epithelial Cells UA None Seen None Seen, 0-2, 3-5 /HPF 10/17/2024 12:47 PM [facility] Mucus UA 4+ /LPF 10/17/2024 12:47 PM [facility] Urine URINE SPECIMEN OBTAINED BY CLEAN CATCH PROCEDURE / Unknown Collection / Unknown 10/17/2024 11:54 AM EMERGENCY COMMUNICATIONS OPERATOR 10/17/2024 12:17 PM EMERGENCY COMMUNICATIONS OPERATOR Narrative [facility] - 10/17/2024 12:47 PM EMERGENCY COMMUNICATIONS OPERATOR Culture Not Indicated Romel Roberts MD LAB - URINALYSIS ORDERABLES Fi nal Result Performing Organization Address [facility]/ZIP Co de Phone Number [address] [address], [place] [phone] * HEPATITIS C AB SCREEN RFLX NAAT QUANT (04/26/2023 4:06 PM CDT) Hepatitis C Antibody Non-react july Non-reac tive 04/26/2023 6:59 PM CDT [facility] Comment:Hepatitis C Antibody screen indicates no serologic evidence of past or current infection with Hepatitis C Virus. Patients with unexplained liver disease who are immunocompromised or suspected of having acute Hepatitis C infection may benefit from Nucleic Acid Test (JESSA) for Hepatitis C Viral RNA to confirm Hepatitis C status. Blood BLOOD SPECIMEN / Unknown Lab Venipuncture / Unknown 04/26/2023 4:06 PM CDT 04/26/2023 4:49 PM CDT John Krueger MD LAB - CHEMISTRY ORDER GINO Final Result [address] [address], [place] [phone] * HIV-1 HIV-2 ANTIBODY + HIV P24 AG PANEL (04/26/2023 4:06 PM CDT) HIV Antigen/Antibod y 1 & 2 Non-reacti ve Non-react july 04/26/2023 6:59 PM CDT [facility] Comment:No Laboratory eviden ce of HIV infection. Blood BLOOD SPECIMEN / Unknown Lab Venipuncture / Unknown 04/26/2023 4:06 PM CDT 04/26/2023 4:49 PM CDT John Krueger MD LAB - CHEMISTRY ORDER GINO Final Result [facility] [address] [place] [address], [facility] [phone] from Last 3 Months or Most Recently Relevant to Health Maintenance Insurance MEDICAID - [place] Advance Directives * Full Code (Latest Code Status on File) Date Activated Date Inactivated Comments 11/28/2023 5:24 PM 12/01/2023 10:51 AM * Full Code Date Activated Date Inactivated Comments 11/28/2023 2:14 PM 11/28/2023 2:20 PM * Full Code Date Activated Date Inactivated Comments 11/15/2023 4:09 PM 11/17/2023 6:49 PM * Full Code Date Activated Date Inactivated Comments 11/15/2023 3:51 PM 11/15/2023 4:09 PM * Full Code Date Activated Date Inactivated Comments 05/12/2023 10:14 AM 05/13/2023 12:08 PM Care Teams Foot Caster Relationship Specialty Start Date End Date Kurtis Goins MD [address] [place] [address] PCP - General Family Medicine 04/22/23
--- NOTE | 2024-12-15 19:35 | ECG_ITS ---
Test Date: 2024-12-15 19:40:03 Measurements Intervals [place] Rate: 42 P: 69 ND: 145 QRS: 79 QRSD: 90 T: 71 QT: 436 QTc: 368 Interpretive Statements SINUS BRADYCARDIA No previous ECG available for comparison Electronically Signed On 12-16-2024 16:03:37 CDT by James Ye
[2024-12-15 19:59] LABS: Basophils Percent Auto 0.3 % (0.2-1.2); Eosinophils Absolute Auto 0.2 K/mm3 (0-0.3); Eosinophils Percent Auto 1.7 % (0-4.4); Hematocrit 42.1 % (42.0-52.0); Hemoglobin 14.9 g/dL (14.0-18.0); Immature Granulocyte Absolute 0.03 K/mm3 (0.00-0.031); Immature Granulocyte Percent A 0.3 % (0-0.5); Lymphocytes Absolute Auto 2.23 K/mm3 (0.9-3.2); Lymphocytes Percent Auto 23.1 % (18.3-44.2); Mean Corpuscular HGB Conc 35.4 g/dl (32-36); Mean Corpuscular Hemoglobin 33.9 pg (26-34); Mean Corpuscular Volume 95.7 fl (80-100); Monocytes Absolute Auto 0.7 K/mm3 (0.1-0.6); Monocytes Percent Auto 6.8 % (2.6-8.5); Neutrophils Absolute Auto 6.5 K/mm3 (1.3-6.7); Neutrophils Percent Auto 67.8 % (45.5-73.1); Platelet Count Result 213 k/mm3 (150-375); Red Cell Distribution Width 12.6 % (11.5-14.5); White Blood Count 9.6 K/mm3 (4.5-10.0)
[2024-12-15] MEDS: ASPIRIN 81 MG CHEWABLE TABLET 324 MG PO (20:00)
--- OUTSIDE RECORDS SUMMARY | 2024-12-15 20:32 | XMS_ITS | Encounter Summary ---
Author Organization [facility] Health Address [address] [place] [address] Care Team Providers Care Deputy Insurance Commissioner Name Role Phone Kurtis Goins MD Primary Care Provider [phone] Encounter Details Date Type Department Care Team (Late st Contact Info) Description 05/20/2023 Telephone [facility] - Centralized Scheduling [address] [place] [address] Romel Roberts MD [address] [facility] [address] [place] [address] Social History Tobacco Use Types Packs/Day Years [...] and heating? Not hard at all 04/22/2023 [facility] - Occupational Stress [...] place to sleep or slept in a fci (including now)? Yes 04/22/2023 Sex and Gender Information Value Date Recorded Sex Assigned at Not on file Legal Sex Male 5:39 AM COMMERCIAL LENDING RELATIONSHIP MANAGER Gender Identity Not on file Sexual Orientation [...] CDT Hospital Encounter [facility] [address] [place] [address] Lorena Watkins MD [address] [place] [address] [address] [place] [address] Surgery General 12/26/2024 12:30 PM CDT - 12/26/2024 12:45 PM CDT Surgery [facility] [place] [address] Lorena Watkins MD [address] [place] [address] [address] [place] [address] EGD w/ tina 01/15/2025 1:30 PM CDT Office Visit [facility] - ENT [address] [place] [phone] Emiliano Tilley MD [address] [place] [address] [place] [address] 03/06/2025 11:30 AM CDT Office Visit [facility] - GI [address] [place] [address], [place] [phone] Jolanta Williamson, WELL SERVICE FLOORPERSON-PROCUREMENT PROFESSIONAL [employer]ISTICS [address] [place] [phone] 04/03/2025 11:00 AM CDT Office Visit [facility] - Allergy [address] [place] [address] [place] [phone] Kolby Meng MD [address] [place] [phone] Scheduled Procedures Name Priority Associated Diagnoses Date/Ti hi ESOPHAGOGASTRODUODENOSCOPY ( EGD) DIAGNOSTIC Esophagitis 12/26/2024 12:30 PM CDT documented as of this encounter Visit Diagnoses Not on filedocumented in this encounter Care Teams Deputy Insurance Commissioner Relationship Specialty Start Date End Date Kurtis Goins MD [address] [place] [address] PCP - General Family Medicine 04/22/23 documented as of this encounter
--- OUTSIDE RECORDS SUMMARY | 2024-12-15 20:32 | XMS_ITS | Clinical Summary ---
Author Organization [facility] Address [address] [place] [address] Care Team Providers Care Industrial Maintenance Technician Name Role Phone Kurtis Goins MD Primary Care Provider [phone] Source Comments [facility],non-owned Affiliates and Associated Physician Practices is amultiple site organization consisting of ambulatory clinics and hospital sitesin [place], [place], [place] and [place]. This disclosure is being madepursuant to the Care Everywhere program and may not contain all information available regarding this patient. Last updated 18.[facility] Allergies Active Allergy Reactions Criticality Noted Date [...] Telephone [facility] [address] [place] [address] Marlene Ray, PharmD Medication Prior Auth Request 12/11/2024 Telephone [facility] [address] [place] [phone] Jolanta Williamson APRN-CNP Medication Problem 12/11/2024 Telephone [facility] [address] [place] [address] [phone] Cyril An, guide foreign tour Issue 12/11/2024 Refill [facility] [address] [place] [address] [phone] Cyril An, BUS PERSON REFILL 12/10/2024 Refill [facility] - Nephrology [address] [place] [address] [phone] Jolanta Williamson APRN-CNP MEDICATION REFILL 12/10/2024 Orders Only [facility] [address] [place] [phone] Jolanta Williamson APRN-CNP Eosinophilic esophagitis 12/10/2024 Refill [facility] [address] [place] [address] [phone] Cyril An, SHARONDA Encounter Opened In Error 12/06/2024 Telephone [facility] - Nephrology [address] [place] [address] [phone] Rebecca Tomlinson, SHARONDA Concerns 12/06/2024 Travel 12/04/2024 Telephone [facility] [address] [place] [address] [phone] Cyril An, RN Follow-up 12/04/2024 Patient Outreach [facility] [address] [place] [phone] Bhumika Luna RN 12/04/2024 Orders Only [facility] [address] [place] [address] [phone] Jolanta Williamson APRN-CNP Esophagitis determined by endoscopy 12/04/2024 Telephone [facility] [address] [place] [phone] Jolanta Williamson APRN-CNP Follow-up 11/29/2024 Orders Only [facility] [address] [place] [phone] Jolanta Williamson APRN-CNP Esophagitis determined by endoscopy 11/28/2024 12:37 PM CDT - 11/28/2024 11:59 PM CDT Hospital Encounter [facility] LAB OP DRAW STATION [address] [place] [address] Romel Roberts MD Discharge Disposition: Home or Self Care 11/28/2024 12:00 PM CDT - 11/28/2024 12:36 PM CDT Hospital Encounter [facility] CAT SCAN [address] [place] [address] Romel Roberts MD Discharge Disposition: Home or Self Care 11/28/2024 11:30 AM CDT Office Visit [facility] [address] [place] [phone] Jolanta Williamson APRN-CNP Esophagitis determined by endoscopy (Primary Dx); Admission for therapeutic drug monitoring; Immunosuppression due to drug therapy (HCC) 11/28/2024 Travel 10/17/2024 11:00 AM WASTEWATER OPERATOR Office Visit [facility] - Infectious Disease [address] [place] [phone] Romel Roberts MD 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); Cavitary lesion of lung; Eosinophilic esophagitis 10/17/2024 Travel 09/27/2024 10:00 AM WASTEWATER OPERATOR Office Visit [facility] - Allergy [address] [place] [phone] Kolby Meng MD Eosinophilic esophagitis (Primary Dx); Coccidioidomycosis; Penicillin allergy 09/27/2024 Travel 09/19/2024 10:30 AM WASTEWATER OPERATOR Clinical Support [facility] [place] [address] [place] [phone] Jolanta Williamson APRN-YASH Esophagitis determined by endoscopy 09/19/2024 Travel 09/18/2024 Telephone [facility] [address] [place] [phone] Cyril An, SHARONDA Follow-up 09/17/2024 Telephone [facility] - Nephrology [address] [place] [phone] Rebecca Tomlinson, SHARONDA Concerns from Last [...] Recorded Patient Health Questionnaire-2 Score 0 07/24/2024 [facility] [place] of Occupat ional Health - Occupational Stress [...] place to sleep or slept in a mcc (including now)? No 11/28/2023 Sex and Gender Information Value Date Recorded Sex Assigned at Not on file Legal Sex Male 5:39 AM WASTEWATER OPERATOR Gender Identity Not on file Sexual Orientation Not on file Last Filed Vital Signs Vital Sign Reading Time Taken Comments Blood Pressure 125/81 11/28/2024 11:37 AM CDT Pulse 54 11/28/2024 11:37 AM CDT Temperature 36.6 C (97.9 F) 11/28/2024 11:37 AM CDT Respiratory Rate 16 10/17/2024 10:45 AM WASTEWATER OPERATOR Oxygen Saturation 100% 11/28/2024 11:37 AM [...] Description 12/26/2024 12:30 PM CDT Hospital Encounter [facility] [address] [place] [phone] Lorena Watkins MD [address] [facility] [place] [phone] Surgery General 12/26/2024 12:30 PM CDT - 12/26/2024 12:45 PM CDT Surgery [facility] [address] [place] [phone] Lorena Watkins MD [address] [place] [address] [address] DIV [place] [phone] EGD w/ palagiri 01/15/2025 1:30 PM CDT Office Visit [facility] - ENT [address] [place] [address], [place] [phone] Emiliano Tilley MD [address] [place] [address] DE[place] [address] 03/06/2025 11:30 AM CDT Office Visit [facility] GI [address] [place] [address], [place] [phone] Jolanta Williamson, FILM CASTING OPERATOR-MUNICIPAL COURT JUDGE [address] [place] [phone] 04/03/2025 11:00 AM CDT Office Visit [facility] - Allergy [address] [place] [address] [place] [phone] Kolby Meng MD [address] [place] [phone] Scheduled Procedures Name Priority Associated Diagnoses Date/Ti [...] REFLEX TO CULTURE Routine 10/17/2024 11:54 AM WASTEWATER OPERATOR 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01 <=0.34 IU/mL 12/01/2024 12:40 AM CDT [facility] ([facility]) QuantiFERON Plus TB2 Minus NIL 0.01 <=0.34 IU/mL 12/01/2024 12:40 AM CDT [facility] ([facility]) QuantiFERON-TB Gold Plus Negative Negative 12/01/2024 12:40 AM CDT [facility] ([facility]) Comment: INTERPRETIVE INFORMATION:Quantiferon TB Gold Plus Interferon [...] Mycobacterium tuberculosis Infection -- [place], 2010 (http://www.cdc.gov/mmwr/preview/mmwrhtml/vv8311g3.htm), for more information concerning test performance in low-prevalence populations and use in occupational screening. Performed By: [facility] [address] [place] [address] Flush Tester: Flako Pascual MD, PhD CLIA Number: [id number] Blood BLOOD SPECIMEN / Unknown Lab Venipuncture / Unknown 11/28/2024 1:12 PM CDT 11/28/2024 1:24 PM CDT Jolanta Williamson FILM CASTING OPERATOR-MUNICIPAL COURT JUDGE LAB - CHEMISTRY ORDERABLES Final Result [facility] ([facility]) [address] [place] [address] * (ABNORMAL) HEPATITIS B SURFACE ANTIBODY QUANT (11/28/2024 1:12 PM CDT) Hepatitis B Virus Surface Antibody Reactive( A) Non-react july 11/28/2024 2:19 PM CDT [facility] Comment: > 12 mIU/mL Hepatitis B surface Antibody (HBsAb). Reactive for HBsAb - individual is considered immune to Hepatitis B Virus infection. Hepatitis B Surface Antibody Quantitative 110.0(H) <8.0 mIU/mL 11/28/2024 2:19 PM CDT [facility] Comment: Hepatitis B Surface Antibody Numeric Result Interpretation: Nonreactive: <8.0 mIU/mL Indeterminate: 8.0 - 12.0 mIU/mL Reactive: >12.0 mIU/mL Blood BLOOD SPECIMEN / Unknown Lab Venipuncture / Unknown 11/28/2024 1:12 PM CDT 11/28/2024 1:24 PM CDT [facility] - 11/28/2024 2:19 PM CDT This assay should not be used for blood, plasma, or tissue donor screening. This assay is not recommended for neonates born to HBV-infected or suspected HBV-infected mothers. us Jolanta Williamson FILM CASTING OPERATOR-MUNICIPAL COURT JUDGE LAB - SEROLOGY O RDERABLES Final Result [facility] [address] [place] [phone], [facility] [phone] * (ABNORMAL) CBC W/ DIFFERENTIAL (11/28/2024 1:12 PM CDT) WBC 5.4 4.0 - 10.7 x10E9/L 11/28/2024 1:36 PM CDT [facility] RBC Count 4.78 4.30 - 5.80 x10E12/L 11/28/2024 1:36 PM [facility] Hemoglobin 15.9 13.3 - 17.5 g/dL 11/28/2024 1:36 PM T [facility] Hematocrit 43.5 38.7 - 51.1 % 11/28/2024 1:36 PM T [facility] MCV 91.0 80.0 - 98.0 fL 11/28/2024 1:36 PM CDT [facility] MCH 33.3 26.7 - 33.6 pg 11/28/2024 1:36 PM CDT [facility] MCHC 36.6(H) 31.7 - 36.3 g/dL 11/28/2024 1:36 PM T [facility] RDW-CV 12.7 11.3 - 14.8 % 11/28/2024 1:36 PM [facility] Platelet Count 247 150 - 420 x10E9/L 11/28/2024 1:36 PM [facility] MPV 10.0 7.8 - 11.4 fL 11/28/2024 1:36 PM [facility] Neutrophil % 51.0 41.0 - 74.0 % 11/28/2024 1:36 PM [facility] Lymphocyte % 34.2 17.0 - 47.0 % 11/28/2024 1:36 PM [facility] Monocyte % 8.8 3.0 - 11.0 % 11/28/2024 1:36 PM [facility] Eosinophil % 5.4 0.0 - 7.0 % 11/28/2024 1:36 PM [facility] Basophil % 0.4 0.0 - 1.6 % 11/28/2024 1:36 PM [facility] Immature Granulocytes % 0.2 0.0 - 1.0 % 11/28/2024 1:36 PM [facility] Neutrophil Absolute 2.73 1.60 - 7.50 x10E9/L 11/28/2024 1:36 PM [facility] Lymphocyte Absolute 1.83 1.00 - 4.40 x10E9/L 11/28/2024 1:36 PM [facility] Monocyte Absolute 0.47 0.15 - 1.00 x10E9/L 11/28/2024 1:36 PM [facility] Eosinophil Absolute 0.29 0.00 - 0.60 x10E9/L 11/28/2024 1:36 PM [facility] Basophil Absolute 0.02 0.00 - 0.13 x10E9/L 11/28/2024 1:36 PM [facility] Blood BLOOD SPECIMEN / Unknown Lab Venipuncture / Unknown 11/28/2024 1:12 PM CDT 11/28/2024 1:29 PM T us Jolanta Williamson FILM CASTING OPERATOR-MUNICIPAL COURT JUDGE LAB - HEMATOLOGY ORDERABLES Final Result [facility] [address] [place] [address], [facility] [phone] * (ABNORMAL) COMPREHENSIVE METABOLIC PANEL (11/28/2024 1:12 PM [facility]) BUN 11 7 - 26 mg/dL 11/28/2024 1:59 PM [facility] Creatinine 0.83 0.71 - 1.16 mg/dL 11/28/2024 1:59 PM [facility] Sodium 142 136 - 145 mmol/L 11/28/2024 1:59 PM [facility] Potassium 4.2 3.5 - 4.5 mmol/L 11/28/2024 1:59 PM [facility] Chloride 103 98 - 107 mmol/L 11/28/2024 1:59 PM [facility] CO2 27 22 - 29 mmol/L 11/28/2024 1:59 PM [facility] Glucose 89 70 - 99 mg/dL 11/28/2024 1:59 PM [facility] Calcium 9.8 8.4 - 10.2 mg/dL 11/28/2024 1:59 PM [facility] Protein Total 7.4 6.0 - 8.3 g/dL 11/28/2024 1:59 PM [facility] Albumin 5.2(H) 3.4 - 5.0 g/dL 11/28/2024 1:59 PM [facility] Bilirubin Total 0.9 0.2 - 1.2 mg/dL 11/28/2024 1:59 PM [facility] Alkaline Phosphatase 81 40 - 150 U/L 11/28/2024 1:59 PM [facility] ALT 21 5 - 55 U/L 11/28/2024 1:59 PM [facility] AST 17 5 - 34 U/L 11/28/2024 1:59 PM [facility] Anion Gap 12 6 - 16 11/28/2024 1:59 PM [facility] BUN/Creatinine Ratio 13 7 - 23 11/28/2024 1:59 PM [facility] Osmolality Calculated 293 275 - 295 mOsm/kg 11/28/2024 1:59 PM CDT [facility] Albumin/Globulin Ratio 2.4(H) 1.1 - 2.3 11/28/2024 1:59 PM CDT [facility] eGFR by CKD-EPI >90 >=90 mL/min/1.7 3 m2 11/28/2024 1:59 PM CDT [facility] Blood BLOOD SPECIMEN / Unknown Lab Venipuncture / Unknown 11/28/2024 1:12 PM CDT 11/28/2024 1:29 PM CDT Jolanta Williamson FILM CASTING OPERATOR-MUNICIPAL COURT JUDGE LAB - CHEMISTRY ORDERABLES Final Result [address] [address], [facility] [phone] * HEPATITIS B CORE ANTIBODY TOTAL (11/28/2024 1:12 PM CDT) HBc Antibody Total Non-reacti ve Non-reacti ve 11/28/2024 2:19 PM CDT [facility] Blood BLOOD SPECIMEN / Unknown Lab Venipuncture / Unknown 11/28/2024 1:12 PM CDT 11/28/2024 1:24 PM CDT Jolanta Williamson APRN-MUNICIPAL COURT JUDGE LAB - CHEMISTRY ORDERABLES Final Result [address] [address], [place] [phone] * HEPATITIS B SURFACE ANTIGEN W RFLX CONFIRMATION (11/28/2024 1:12 PM CDT) Hepatitis B Virus Surface Antigen Non-reacti ve Non-reacti ve 11/28/2024 2:19 PM CDT [facility] Blood BLOOD SPECIMEN / Unknown Lab Venipuncture / Unknown 11/28/2024 1:12 PM CDT 11/28/2024 1:24 PM CDT Jolanta Stevensonell FILM CASTING OPERATOR-MUNICIPAL COURT JUDGE LAB - CHEMISTRY ORDERABLES Final Result [facility] [address] [place] [address], [facility] [phone] * CT Chest W Contrast (11/28/2024 12:33 PM CDT) Anatomical Region Laterality Modality Chest Computed Tomogra phy 11/28/2024 3:33 PM CDT Impressions 11/28/2024 9:13 PM CDT Impression: 1.Resolution of previously seen cavitary lesions in the right upper lobe with residual scarring. No new lesions are seen. 2.Redemonstrated postsurgical changes right lower lobe lobectomy. > Dictated by Johanna Kraft MD, (Pest Control Technician). I, Kenny Mcnamara MD have personally reviewed and interpreted this examination/study. 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 > Dictated by Johanna Kraft MD, (Pest Control Technician). I, Kenny Mcnamara MD have personally reviewed and interpreted this examination/study. > Interpreting Provider: Kenny Mcnamara MD on 11/28/2024 9:13 PM Romel Roberts MD CT ORDERABLES Final Result * CREATININE - POCT INTERFACED (11/28/2024 12:20 PM CDT) Creatinine POCT 0.61 0.30 - 1.30 mg/dL 11/28/2024 12:25 PM CDT [facility] eGFR >90 >=90 mL/min/1.7 3 m2 11/28/2024 12:25 PM T [facility] Blood BLOOD SPECIMEN / Unknown 11/28/2024 12:20 PM CDT 11/28/2024 12:25 PM CDT Romel Roberts MD LAB - POINT OF CARE ORDERABLES Final Result [facility] [address] [place] [address], [facility] [phone] * (ABNORMAL) URINALYSIS W/MICROSCOPIC REFLEX TO CULTURE (10/17/2024 11:54 AM WASTEWATER OPERATOR) Color UA Yellow Straw, Yellow 10/17/2024 12:47 PM [facility] Clarity UA Slt Cloudy(A) Clear 10/17/2024 12:47 PM [facility] Specific Colby UA 1.027 1.005 - 1.030 10/17/2024 12:47 PM [facility] pH UA 5.0 5.0 - 8.0 pH 10/17/2024 12:47 PM [facility] Protein UA Negative Negative 10/17/2024 12:47 PM [facility] Glucose UA Negative Negative 10/17/2024 12:47 PM [facility] Ketone UA Negative Negative 10/17/2024 12:47 PM [facility] Bilirubin UA Negative Negative 10/17/2024 12:47 PM [facility] Blood UA Negative Negative 10/17/2024 12:47 PM [facility] Nitrite UA Negative Negative 10/17/2024 12:47 PM [facility] Leukocyte Esterase Negative Negative 10/17/2024 12:47 PM [facility] Urobilinogen UA Negative Negative mg/dL 10/17/2024 12:47 PM [facility] RBC UA 0-2 None Seen, 0-2, 3-5 /HPF 10/17/2024 12:47 PM [facility] WBC UA 0-5 None Seen, 0-5 /HPF 10/17/2024 12:47 PM [facility] Squamous Epithelial Cells UA None Seen None Seen, 0-2, 3-5 /HPF 10/17/2024 12:47 PM [facility] Mucus UA 4+ /LPF 10/17/2024 12:47 PM [facility] Urine URINE SPECIMEN OBTAINED BY CLEAN CATCH PROCEDURE / Unknown Collection / Unknown 10/17/2024 11:54 AM WASTEWATER OPERATOR 10/17/2024 12:17 PM WASTEWATER OPERATOR Narrative [facility] - 10/17/2024 12:47 PM WASTEWATER OPERATOR Culture Not Indicated Romel Roberts MD LAB - URINALYSIS ORDERABLES Fi nal Result Performing Organization Address [facility]/ZIP Co de Phone Number [address] [address], [place] [phone] * HEPATITIS C AB SCREEN RFLX NAAT QUANT (04/26/2023 4:06 PM CDT) Hepatitis C Antibody Non-react july Non-reac tive 04/26/2023 6:59 PM CDT [facility] Comment:Hepatitis C Antibody screen indicates no [...] LAB - CHEMISTRY ORDER GINO Final Result [address] [address], [place] [phone] * HIV-1 HIV-2 ANTIBODY + HIV P24 AG PANEL (04/26/2023 4:06 PM CDT) HIV Antigen/Antibod y 1 & 2 Non-reacti ve Non-react july 04/26/2023 6:59 PM CDT [facility] Comment:No Laboratory eviden ce of HIV infection. Blood BLOOD SPECIMEN / Unknown Lab Venipuncture / Unknown 04/26/2023 4:06 PM CDT 04/26/2023 4:49 PM CDT John Krueger MD LAB - CHEMISTRY ORDER GINO Final Result [facility] [address] [place] [address], [facility] [phone] from Last 3 Months or Most Recently [...] 10:14 AM 05/13/2023 12:08 PM Care Teams Industrial Maintenance Technician Relationship Specialty Start Date End Date Kurtis Goins MD [address] [place] [address] PCP - General Family Medicine 04/22/23
--- OUTSIDE RECORDS SUMMARY | 2024-12-15 20:32 | XMS_ITS | Encounter Summary ---
Author Organization [facility] Address [address] [facility] [place] [address] Care Team Providers Care Web Marketing Intern Name Role Phone Kurtis Goins MD Primary Care Provider [phone] Reason for Visit * Reason Onset Date Comments Med Question 05/23/2023 Encounter Details Date Type Department Care Team (Late st Contact Info) Description 05/23/2023 Telephone [facility] - Centralized Scheduling [address] [place] [address] Romel Roberts MD [address] [facility] [place] [address] Med Question Social History Tobacco Use Types [...] and heating? Not hard at all 04/22/2023 [facility] [place] of Occupat ional Health - Occupational Stress [...] place to sleep or slept in a care home (including now)? 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 - ENT [address] [place] [phone] Emiliano Tilley MD [address] [place] [address] [place] [address] 03/06/2025 11:30 AM CDT Office Visit [facility] [address] [facility], [place] [address] Jolanta Williamson, EMBOSSING PRESS OPERATOR MOLDED GOODS-PATIENT INSURANCE CLERK [address] [place] [address] 04/03/2025 11:00 AM CDT Office Visit [facility] - Allergy [address] [facility], [place] [address] Kolby Meng MD [address] [place] [address] Scheduled Procedures Name Priority Associated Diagnoses Date/Ti me ESOPHAGOGASTRODUODENOSCOPY ( EGD) DIAGNOSTIC Esophagitis 12/26/2024 12:30 PM CDT documented as of this encounter Visit Diagnoses Not on filedocumented in this encounter Care Teams Web Marketing Intern Relationship Specialty Start Date End Date Kurtis Goins MD [address] [place] [address] PCP - General Family Medicine 04/22/23 documented as of this encounter
--- OUTSIDE RECORDS SUMMARY | 2024-12-15 20:32 | XMS_ITS | Clinical Summary ---
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
--- OUTSIDE RECORDS SUMMARY | 2024-12-15 20:32 | XMS_ITS | Referral Summary ---
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
[2024-12-15 20:44] LABS: Lactic Acid Reflex 2.3 mmol/L (0.7-2.0)
[2024-12-15 20:45] LABS: Alanine Aminotransferase 52 U/L (6-50); Albumin Level 4.7 g/dL (3.5-5.1); Alkaline Phosphatase 72 U/L (38-126); Anion Gap 8 mmol/L (4-12); Aspartate Amino Transferase 30 U/L (17-59); Bilirubin,Total 0.5 mg/dL (0.2-1.3); Blood Urea Nitrogen 12 mg/dL (9-20); Calcium 9.3 mg/dL (8.4-10.2); Carbon Dioxide 31 mmol/L (22-30); Chloride 101 mmol/L (98-107); Estimated Glomerular Filt Rate > 60; Glucose 180 mg/dL (65-110); Lipase 66 U/L (23-300); Sodium 140 mmol/L (137-145)
[2024-12-15 20:47] LABS: INR 1.1; Prothrombin Time 14.2 Seconds (11.1-14.7)
[2024-12-15 20:48] LABS: Partial Thromboplastin Time 22.4 Seconds (22.3-36.8)
[2024-12-15] MEDS: SODIUM CHLORIDE 0.9% IV 1,000 ML 999 ML IV CONT (20:49)
[2024-12-15] MEDS: ONDANSETRON INJ 4 MG/2 ML VIAL IV PUSH (20:50)
[2024-12-15 20:56] LABS: Troponin I < 0.012 ng/mL (0.000-0.034)
[2024-12-15 21:23] LABS: Influenza A QL RT-PCR Negative (Negative); Influenza B QL RT-PCR Negative (Negative); RSV RNA, RT-PCR Negative (Negative); SARS-CoV-2 RNA PCR Negative (Negative)
[2024-12-15 22:33] LABS: Reflex Lactic Acid Yes or No Add Lactic
--- NOTE | 2024-12-15 22:37 | ED.GENADULT ---
HPI - General Adult General Chief complaint: Chest Pain Stated complaint: chest pain Time Seen by Provider: 12/15/24 20:12 History of Present Illness HPI narrative: Patient is a 29-year-old gentleman presents emergency department chief complaint of epigastric pain. Patient reports that he started having epigastric discomfort with nausea and slight shortness of breath that feels as though somebody sitting in his epigastric region patient states that the pain gets worse when he takes a deep breath reports that is not improved by anything the patient states the pain is really not in his chest Related Data Allergies Allergy/AdvReac Type Severity Reaction Status Date / Time sulfamethoxazole (From Allergy Mild Hives Verified 12/15/24 20:01 Septra) trimethoprim (From Septra) Allergy Mild Hives Verified 12/15/24 20:01 Penicillins AdvReac Intermediate Difficulty Verified 12/15/24 20:01 Breathing amoxicillin (From Augmentin) AdvReac Mild Difficulty Verified 12/15/24 20:01 Breathing clavulanic acid (From AdvReac Mild Difficulty Verified 12/15/24 20:01 Augmentin) Breathing Review of Systems Review of Systems: A 10 system review of systems was completed on the patient and is negative except for what is stated in the HPI. Nursing and ancillary documentation was reviewed. 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 History of bronchoscopy H/o R VATS, bronchoscopy, and decortication 04/22/23 Family History Family History Father Hypertension Mother Hypertension Depression Social History Social History Smoking packs per day: 1 Smoking cigarettes per day: 20.0 Smoking status: Former smoker Tobacco type: cigarettes Alcohol intake: current Substance use: never Living arrangements: with family Occupation/Education: occupation Gender identity (if verbalized by the patient): Male Sexual Orientation (if Verbalized by the Patient): Straight or Heterosexual Spiritual care concerns: No Exam Narrative: GENERAL: Well-appearing, well-nourished, and in no acute distress. HEAD: Normocephalic, atraumatic. EYES: PERRLA and EOMI. ENT: Nares clear, no rhinorrhea or epistaxis. Mucous membranes moist. NECK: Supple. CHEST: Clear to auscultation. No respiratory distress. HEART: Regular rate and rhythm. No murmur heard. Normal peripheral pulses. ABDOMEN: Soft, tenderness to palpation in the epigastric and right upper quadrant, nondistended, normal active bowel sounds. EXTREMITIES: Normal range of motion. No edema. SKIN: Warm, dry, no rash. NEURO: No focal deficits. Alert and oriented x3. PSYCH: Normal mood and affect. Course Vital Signs Vital signs: Vital Signs Temperature 36.4 C 12/15/24 19:33 Pulse Rate 43 L 12/15/24 19:33 Respiratory Rate 15 12/15/24 19:33 Blood Pressure 132/68 12/15/24 19:33 Pulse Oximetry 100 12/15/24 19:33 Oxygen Delivery Room Air 12/15/24 19:33 Temperature 36.4 C 12/15/24 19:33 Pulse Rate 57 L 12/15/24 23:03 Respiratory Rate 18 12/15/24 23:03 Blood Pressure 106/94 H 12/15/24 23:03 Pulse Oximetry 100 12/15/24 23:03 Oxygen Delivery Room Air 12/15/24 20:04 Medical Decision Making [facility] Narrative Medical decision making narrative: Differential diagnosis includes pulmonary embolism, ACS, electrolyte abnormality, cholecystitis, choledocholithiasis, pancreatitis Laboratory studies showed a normal lipase liver enzymes are within normal limits. Lactic acid was initially slightly elevated but subsequently has come down to 1.2 2 troponins were negative EKG showed no acute ischemic changes CTA chest abdomen pelvis showed some fluid around the gallbladder but no thickening gallbladder wall and no evidence of stones. The patient's pain was improved patient discharged home follow up with his doctors he should emergency who recommended the patient have HIDA scan the worsening pain she should return emergency department Vital Signs Vital Signs: Vital Signs Temperature 36.4 C 12/15/24 19:33 Pulse Rate 43 L 12/15/24 19:33 Respiratory Rate 15 12/15/24 19:33 Blood Pressure 132/68 12/15/24 19:33 Pulse Oximetry 100 12/15/24 19:33 Oxygen Delivery Room Air 12/15/24 19:33 Temperature 36.4 C 12/15/24 19:33 Pulse Rate 57 L 12/15/24 23:03 Respiratory Rate 18 12/15/24 23:03 Blood Pressure 106/94 H 12/15/24 23:03 Pulse Oximetry 100 12/15/24 23:03 Oxygen Delivery Room Air 12/15/24 20:04 Lab Data 12/15/24 19:53 12/15/24 20:27 Labs: Lab Results 12/15/24 12/15/24 12/15/24 Range/Units 19:53 20:27 20:44 WBC 9.6 (4.5-10.0) K/mm3 RBC 4.40 L (4.6-6.20) M/mm3 Hgb 14.9 (14.0-18.0) g/dL Hct 42.1 (42.0-52.0) % MCV 95.7 (80-100) fl MCH 33.9 (26-34) pg MCHC 35.4 (32-36) g/dl RDW 12.6 (11.5-14.5) % Plt Count 213 (150-375) k/mm3 MPV 11.0 H (7.4-10.4) fl Immature Gran % (Auto) 0.3 (0-0.5) % Neut % (Auto) 67.8 (45.5-73.1) % Lymph % (Auto) 23.1 (18.3-44.2) % [place] % (Auto) 6.8 (2.6-8.5) % Eos % (Auto) 1.7 (0-4.4) % Baso % (Auto) 0.3 (0.2-1.2) % Lymph # (Auto) 2.23 (0.9-3.2) K/mm3 [place] # (Auto) 0.7 H (0.1-0.6) K/mm3 Eos # (Auto) 0.2 (0-0.3) K/mm3 Baso # (Auto) 0.0 (0.0-0.1) K/mm3 Abs Immat Gran (auto) 0.03 (0.00-0.031) K/mm3 Absolute Neuts (auto) 6.5 (1.3-6.7) K/mm3 Absolute Nucleated RBC 0.000 (0.0-0.012) K/mm3 Nucleated RBC % 0.0 (0.0-0.2) % PT 14.2 (11.1-14.7) Seconds INR 1.1 APTT 22.4 (22.3-36.8) Seconds Sodium 140 (137-145) mmol/L Potassium 4.0 (3.4-5.0) mmol/L Chloride 101 (98-107) mmol/L Carbon Dioxide 31 H (22-30) mmol/L Anion Gap 8 (4-12) mmol/L BUN 12 (9-20) mg/dL Creatinine 0.74 (0.7-1.3) mg/dL Estim Creat Clear Calc Not Reportable Estimated GFR > 60 (59 - ) Glucose 180 H (65-110) mg/dL Lactic Acid 2.3 H (0.7-2.0) mmol/L Calcium 9.3 (8.4-10.2) mg/dL Total Bilirubin 0.5 (0.2-1.3) mg/dL AST 30 (17-59) U/L ALT 52 H (6-50) U/L Alkaline Phosphatase 72 (38-126) U/L Troponin I < 0.012 (0.000-0.034) ng/mL Total Protein 7.0 (6.3-8.2) g/dL Albumin 4.7 (3.5-5.1) g/dL Lipase 66 (23-300) U/L Urine Color (Yellow) Urine Appearance (Clear) Urine pH (5.0-9.0) Ur Specific [place] (1.001-1.035) Urine Protein (Negative) mg/dL Urine Glucose (UA) (Negative) mg/dL Urine Ketones (Negative) mg/dL Ur Blood (Man) (Negative) Urine Nitrate (Negative) Urine Bilirubin (Negative) Urine Urobilinogen (<2.0) mg/dL Leukocyte Esterase Rfl (Negative) PAMELA/UL Influenza A (RT-PCR) Negative (Negative) Influenza B (RT-PCR) Negative (Negative) RSV (RT-PCR) Negative (Negative) SARS-CoV-2 RNA (RT-PCR) Negative (Negative) 12/15/24 Range/Units 23:34 WBC (4.5-10.0) K/mm3 RBC (4.6-6.20) M/mm3 Hgb (14.0-18.0) g/dL Hct (42.0-52.0) % MCV (80-100) fl MCH (26-34) pg MCHC (32-36) g/dl RDW (11.5-14.5) % Plt Count (150-375) k/mm3 MPV (7.4-10.4) fl Immature Gran % (Auto) (0-0.5) % Neut % (Auto) (45.5-73.1) % Lymph % (Auto) (18.3-44.2) % [place] % (Auto) (2.6-8.5) % Eos % (Auto) (0-4.4) % Baso % (Auto) (0.2-1.2) % Lymph # (Auto) (0.9-3.2) K/mm3 [place] # (Auto) (0.1-0.6) K/mm3 Eos # (Auto) (0-0.3) K/mm3 Baso # (Auto) (0.0-0.1) K/mm3 Abs Immat Gran (auto) (0.00-0.031) K/mm3 Absolute Neuts (auto) (1.3-6.7) K/mm3 Absolute Nucleated RBC (0.0-0.012) K/mm3 Nucleated RBC % (0.0-0.2) % PT (11.1-14.7) Seconds INR APTT (22.3-36.8) Seconds Sodium (137-145) mmol/L Potassium (3.4-5.0) mmol/L Chloride (98-107) mmol/L Carbon Dioxide (22-30) mmol/L Anion Gap (4-12) mmol/L BUN (9-20) mg/dL Creatinine (0.7-1.3) mg/dL Estim Creat Clear Calc Estimated GFR (59 - ) Glucose (65-110) mg/dL Lactic Acid 1.2 (0.7-2.0) mmol/L Calcium (8.4-10.2) mg/dL Total Bilirubin (0.2-1.3) mg/dL AST (17-59) U/L ALT (6-50) U/L Alkaline Phosphatase (38-126) U/L Troponin I < 0.012 (0.000-0.034) ng/mL Total Protein (6.3-8.2) g/dL Albumin (3.5-5.1) g/dL Lipase (23-300) U/L Urine Color Yellow (Yellow) Urine Appearance Clear (Clear) Urine pH 8.0 (5.0-9.0) Ur Specific [place] 1.032 (1.001-1.035) Urine Protein Negative (Negative) mg/dL Urine Glucose (UA) Negative (Negative) mg/dL Urine Ketones Negative (Negative) mg/dL Ur Blood (Man) Negative (Negative) Urine Nitrate Negative (Negative) Urine Bilirubin Negative (Negative) Urine Urobilinogen 0.2 (<2.0) mg/dL Leukocyte Esterase Rfl Negative (Negative) PAMELA/UL Influenza A (RT-PCR) (Negative) Influenza B (RT-PCR) (Negative) RSV (RT-PCR) (Negative) SARS-CoV-2 RNA (RT-PCR) (Negative) Discharge Plan Discharge Clinical Impression: Acute epigastric pain Patient Disposition: Home Condition: Stable Instructions: Antibiotic Form, Abdominal Pain (ED) Additional Instructions: Please follow-up with your primary care provider. You may need a HIDA scan if you continue to have symptoms. Patient Language: Lao Prescriptions: New hydrocodone-acetaminophen 10-325 mg/15 mL(15 mL) solution 7.5 ml PO Q6H PRN (Reason: pain) 3 Days Qty: 90 0RF Follow-up/Referrals: Kurtis Goins MD [Primary Care Provider] - Time of Disposition: 00:11
[2024-12-15 23:41] LABS: Add Urine Microscopic? NO; Appearance Urine Clear (Clear); Bilirubin Urine Negative (Negative); Blood Urine Negative (Negative); Color Urine Yellow (Yellow); Glucose Urine UA Negative (Negative); Ketones Urine Negative (Negative); Leukocyte Esterase Ur Negative LEU/UL (Negative); Nitrate Urine Negative (Negative); Protein Urine Negative (Negative); Specific Grav Ur 1.032 (1.001-1.035); Urobilinogen Urine 0.2 mg/dL (<2.0)
[2024-12-15 23:50] LABS: Lactic Acid 1.2 mmol/L (0.7-2.0)
[2024-12-16] VITALS: PULSE 52; RESP 13; O2SAT 100
[2024-12-16 00:03] LABS: Troponin I < 0.012 ng/mL (0.000-0.034)
[2024-12-16 00:24] VITALS: BP 132/66; PULSE 76; RESP 16; TEMP 36.6; O2SAT 98
--- NOTE | 2024-12-16 08:02 | ECG_ITS ---
Test Date: 2024-12-15 23:23:37 Measurements Intervals [place] Rate: 61 P: 71 AK: 170 QRS: 72 QRSD: 95 T: 65 QT: 379 QTc: 383 Interpretive Statements SINUS RHYTHM WITH MARKED SINUS ARRHYTHMIA POSSIBLE RIGHT VENTRICULAR CONDUCTION DELAY [RSR (QR) IN V1/V2] Compared to ECG 12/15/2024 19:40:03 Sinus bradycardia no longer present Electronically Signed On 12-16-2024 16:04:18 CDT by James Ye
== END 2024-12-16 00:25 | disposition home or self-care (01) ==
PROVIDERS: Emergency Provider Emergency Medicine; PCP Family Medicine
DX: R10.13 Epigastric pain (principal); Z87.891 Personal history of nicotine dependence; Z20.822 Contact with and (suspected) exposure to COVID-19
CPT/HCPCS: 36415; 71046; 71275; 74177; 80053; 81003; 83605; 83690; 84484; 85025; 85610; 85730; 87637; 93005; 96361; 96374; 99284; A9270; J2405; J7030; Q9967

== ENCOUNTER 2024-12-23 22:49 | Emergency (ER) | payer MEDICAID, SELFPAY ==
[2024-12-23 22:51] VITALS: BP 116/66; PULSE 53; RESP 16; TEMP 36.6; O2SAT 100
--- OUTSIDE RECORDS SUMMARY | 2024-12-23 22:52 | XMS_ITS | Encounter Summary ---
Author Organization [facility] Health Address [address] [place] [address] Care Team Providers Care Fiction Writer Name Role Phone Kurtis Goins MD Primary Care Provider [phone] Reason for Visit * Reason Onset Date Comments Med Question 05/23/2023 Encounter Details Date Type Department Care Team (Late st Contact Info) Description 05/23/2023 Telephone [facility] - Centralized Scheduling [address] [place] [address] Romel Roberts MD [address] [facility] [place] [address] Med Question Social History Tobacco Use Types [...] and heating? Not hard at all 04/22/2023 [facility] [place] [facility] - Occupational Stress [...] place to sleep or slept in a [place] facility (including now)? 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 [employer]NA[employer] Gender Identity Not on file Sexual [...] Team (Late st Contact Info) Description 12/26/2024 12:15 PM CDT Hospital Encounter [facility] [address] [place] [address] Lorena Watkins MD [address] [place] [address] [address] [place] [phone] Surgery General 12/26/2024 12:15 PM CDT - 12/26/2024 12:45 PM CDT Surgery [facility] [address] [place] [phone] Lorena Watkins MD [address] [place] [address] [address] [place] [address] EGD jay/ tina 01/15/2025 1:30 PM CDT Office Visit [facility] - ENT [address] [place] [phone] Emilinao Tilley MD [address] [place] [address] [place] [address] 01/16/2025 11:00 AM CDT Office Visit [facility] - Infectious Disease [address] [place] [address], [place] [address] Romel Roberts MD [address] [place] [address] DIV [place] [address] 03/06/2025 11:30 AM CDT Office Visit [facility] - GI [address] [place] [address], [place] [address] Jolanta Williamson, [facility] [address] [place] [phone] 04/03/2025 11:00 AM CDT Office Visit [facility] - Allergy [address] [place] [phone] Kolyb Meng MD [address] [place] [address] Scheduled Procedures Name Priority Associated Diagnoses Date/Ti me ESOPHAGOGASTRODUODENOSCOPY ( EGD) DIAGNOSTIC Esophagitis 12/26/2024 12:15 PM CDT documented as of this encounter Visit Diagnoses Not on filedocumented in this encounter Care Teams Fiction Writer Relationship Specialty Start Date End Date Kurtis Goins MD [address] [place] [address] PCP - General Family Medicine 04/22/23 documented as of this encounter
--- OUTSIDE RECORDS SUMMARY | 2024-12-23 22:52 | XMS_ITS | Clinical Summary ---
Author Organization [facility] [employer] Address [address] [place] [address] Care Team Providers Care Textile Chemist Name Role Phone Kurtis Goins MD Primary Care Provider [phone] Source Comments [facility] [employer],non-owned Affiliates and Associated Physician Practices is amultiple site organization consisting of ambulatory clinics and hospital sitesin [place], [place], [place] and [place]. This disclosure is being madepursuant to the Care Everywhere program and may not contain all information available regarding this patient. 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 difficile colitis 05/12/2023 023 Encounters Date Type Department Care Team Description 12/18/2024 Patient Outreach [facility] [address] [place] [phone] Deana Cannon RN Pre-op Instructions 12/17/2024 Travel 12/12/2024 Telephone [facility] [place] [address] [place] [phone] Marlene Ray, PharmD Medication Prior Auth Request 12/11/2024 Telephone [facility] [address] [place] [phone] Jolanta Williamson APRN-CNP Medication Problem 12/11/2024 Telephone [facility] [address] [place] [phone] Cyril An, postbed stitcher Issue 12/11/2024 Refill [facility] [address] [place] [phone] Cyril An, SUPERVISOR BROADLOOM REFILL 12/10/2024 Refill [facility] - Nephrology [address] [place] [address] [phone] Jolanta Williamson APRN-CNP MEDICATION REFILL 12/10/2024 Orders Only [facility] [address] [place] [phone] Jolanta Williamson APRN-CNP Eosinophilic esophagitis 12/10/2024 Refill [facility] [address] [place] [phone] yCril An, SHARONDA Encounter Opened In Error 12/06/2024 Telephone [facility] - Nephrology [address] [place] [phone] Rebecca Tomlinson, SHARONDA Concerns 12/06/2024 Travel 12/04/2024 Telephone [facility] [address] [place] [phone] Cyril An, RN Follow-up 12/04/2024 Patient Outreach [facility] [address] [place] [phone] Bhumika Luna RN 12/04/2024 Orders Only [facility] [address] [place] [phone] Jolanta Williamson APRN-CNP Esophagitis determined by endoscopy 12/04/2024 Telephone [facility] [address] [place] [phone] Jolanta Williamson APRN-CNP Follow-up 11/29/2024 Orders Only [facility] [address] [place] [phone] Jolanta Williamson APRN-CNP Esophagitis determined by endoscopy 11/28/2024 12:37 PM CDT - 11/28/2024 11:59 PM CDT Hospital Encounter [facility] DRAW STATION [address] [place] [address] Romel Roberts MD Discharge Disposition: Home or Self Care 11/28/2024 12:00 PM CDT - 11/28/2024 12:36 PM CDT Hospital Encounter [facility] CAT SCAN [address] [place] [address] Romel Roberts MD Discharge Disposition: Home or Self Care 11/28/2024 11:30 AM CDT Office Visit [facility] [address] [place] [phone] Jolanta Williamson APRN-CNP Esophagitis determined by endoscopy (Primary Dx); Admission for therapeutic drug monitoring; Immunosuppression due to drug therapy (HCC) 11/28/2024 Travel 10/17/2024 11:00 AM DIRECTOR OF RESTAURANTS Office Visit [facility] - Infectious Disease [address] [place] [phone] Romel Roberts MD 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 No 11/28/2023 Sex and Gender Information Value Date Recorded Sex Assigned at Not on file Legal Sex Male 5:39 AM DIRECTOR OF RESTAURANTS Gender Identity Not on file Sexual Orientation Not on file Last Filed Vital Signs Vital Sign Reading Time Taken Comments Blood Pressure 125/81 11/28/2024 11:37 AM CDT Pulse 54 11/28/2024 11:37 AM CDT Temperature 36.6 C (97.9 F) 11/28/2024 11:37 AM CDT Respiratory Rate 16 10/17/2024 10:45 AM DIRECTOR OF RESTAURANTS Oxygen Saturation 100% 11/28/2024 11:37 AM CDT [...] Description 12/26/2024 12:15 PM CDT Hospital Encounter [facility] [address] [place] [phone] Lorena Watkins MD [address] [place] [address] [address] [place] [phone] Surgery General 12/26/2024 12:15 PM CDT - 12/26/2024 12:45 PM CDT Surgery [facility] [address] [place] [phone] Lorena Watkins MD [address] [place] [address] [address] [place] [phone] EGD w/ tina 01/15/2025 1:30 PM CDT Office Visit [facility] - ENT [address] [place] [phone] Emiliano Tilley MD [address] [place] [address] DE[place] [address] 01/16/2025 11:00 AM CDT Office Visit [facility] - Infectious Disease [address] [place] [address], [place] [phone] Romel Roberts MD [address] [place] [address] OF [place] [address] 03/06/2025 11:30 AM CDT Office Visit [facility] [address] [place] [address] [place] [phone] Jolanta Williamson, RABBLER-CATERPILLAR OPERATOR [address] [place] [phone] 04/03/2025 11:00 AM CDT Office Visit [facility] - Allergy [address] [place] [address], [place] [phone] Kolby Meng MD [address] [place] [phone] Scheduled Procedures Name Priority Associated Diagnoses Date/Ti me ESOPHAGOGASTRODUODENOSCOPY ( EGD) DIAGNOSTIC Esophagitis 12/26/2024 12:15 PM CDT Health Maintenance Due Date Last Done Comments DTAP/TDAP/TD VACCINES (1 - Tdap) 2015 HEPATITIS B VACCINE (1 of 3 - 19+ 3-dose series) 2015 PNEUMOCOCCAL VACCINE (1 of 2 - PCV) 2015 ZOSTER VACCINE (1 of 2) 2015 COVID-19 VACCINE ( - 2023-2 5 season) 2024 07/06/2021, 01/02/2021, [...] General On track( 025 11:31 AM CDT) No Cyril An, RN Note: Expected end date: ongoing Interventions: [...] REFLEX TO CULTURE Routine 10/17/2024 11:54 AM DIRECTOR OF RESTAURANTS 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 Eosinophilic esophagitis HEPATITIS C AB SCREEN RFLX NAAT QUANT Routine 04/26/2023 4:06 PM CDT HIV-1 HIV-2 ANTIBODY + HIV P24 AG PANEL Routine 04/26/2023 4:06 PM CDT from Last 3 Months or Most Recently Relevant to Health Maintenance Results * QUANTIFERON-TB GOLD PLUS 4-TUBE (11/28/2024 1:12 PM CDT) [facility] QuantiFERON Mitogen Minus NIL 9.98 IU/mL 12/01/2024 12:40 AM CDT [facility]) QuantiFERON Nil Value 0.02 IU/mL 12/01/2024 12:40 AM CDT [facility]) QuantiFERON Plus TB1 Minus NIL 0.01 <=0.34 IU/mL 12/01/2024 12:40 AM CDT [facility]) QuantiFERON Plus TB2 Minus NIL 0.01 <=0.34 IU/mL 12/01/2024 12:40 AM CDT [facility]) QuantiFERON-TB Gold Plus Negative Negative 12/01/2024 12:40 AM CDT [facility] ([facility]) Comment: INTERPRETIVE INFORMATION:Quantiferon TB Gold Plus [...] Mycobacterium tuberculosis Infection -- [place], 2010 (http://www.cdc.gov/mmwr/preview/mmwrhtml/gr9910y0.htm), for more information concerning test performance in low-prevalence populations and use in occupational screening. Performed By: [employer] [address] [place] [address] Skylights Assembler: Flako Pascual MD, PhD CLIA Number: [id number] Blood BLOOD SPECIMEN / Unknown Lab Venipuncture / Unknown 11/28/2024 1:12 PM CDT 11/28/2024 1:24 PM CDT Jolanta Williamson RABBLER-CATERPILLAR OPERATOR LAB - CHEMISTRY ORDERABLES Final Result [facility] [employer] ([facility]) [address] [place] [address] * (ABNORMAL) HEPATITIS B SURFACE ANTIBODY QUANT (11/28/2024 1:12 PM CDT) Hepatitis B Virus Surface Antibody Reactive( A) Non-react july 11/28/2024 2:19 PM CDT [facility] Comment: > 12 mIU/mL Hepatitis B surface Antibody (HBsAb). Reactive for HBsAb - individual is considered immune to Hepatitis B Virus infection. Hepatitis B Surface Antibody Quantitative 110.0(H) <8.0 mIU/mL 11/28/2024 2:19 PM CDT [facility] Comment: Hepatitis B Surface Antibody Numeric Result Interpretation: Nonreactive: <8.0 mIU/mL Indeterminate: 8.0 - 12.0 mIU/mL Reactive: >12.0 mIU/mL Blood BLOOD SPECIMEN / Unknown Lab Venipuncture / Unknown 11/28/2024 1:12 PM CDT 11/28/2024 1:24 PM CDT [facility] - 11/28/2024 2:19 PM CDT This assay should not be used for blood, plasma, or tissue donor screening. This assay is not recommended for neonates born to HBV-infected or suspected HBV-infected mothers. Jolanta Williamson RABBLER-CATERPILLAR OPERATOR LAB - SEROLOGY O RDERABLES Final Result [facility] [address] [place] [address], [facility] [phone] * (ABNORMAL) CBC W/ DIFFERENTIAL (11/28/2024 1:12 PM CDT) WBC 5.4 4.0 - 10.7 x10E9/L 11/28/2024 1:36 PM [facility] RBC Count 4.78 4.30 - 5.80 x10E12/L 11/28/2024 1:36 PM [facility] Hemoglobin 15.9 13.3 - 17.5 g/dL 11/28/2024 1:36 PM [facility] Hematocrit 43.5 38.7 - 51.1 % 11/28/2024 1:36 PM [facility] MCV 91.0 80.0 - 98.0 fL 11/28/2024 1:36 PM [facility] MCH 33.3 26.7 - 33.6 pg 11/28/2024 1:36 PM T [facility] MCHC 36.6(H) 31.7 - 36.3 g/dL 11/28/2024 1:36 PM T [facility] RDW-CV 12.7 11.3 - 14.8 % 11/28/2024 1:36 PM [facility] Platelet Count 247 150 - 420 x10E9/L 11/28/2024 1:36 PM [facility] MPV 10.0 7.8 - 11.4 fL 11/28/2024 1:36 PM T [facility] Neutrophil % 51.0 41.0 - 74.0 % 11/28/2024 1:36 PM CDT [facility] Lymphocyte % 34.2 17.0 - 47.0 % 11/28/2024 1:36 PM T [facility] Monocyte % 8.8 3.0 - 11.0 % 11/28/2024 1:36 PM T [facility] Eosinophil % 5.4 0.0 - 7.0 % 11/28/2024 1:36 PM T [facility] Basophil % 0.4 0.0 - 1.6 % 11/28/2024 1:36 PM T [facility] Immature Granulocytes % 0.2 0.0 - 1.0 % 11/28/2024 1:36 PM [facility] Neutrophil Absolute 2.73 1.60 - 7.50 x10E9/L 11/28/2024 1:36 PM [facility] Lymphocyte Absolute 1.83 1.00 - 4.40 x10E9/L 11/28/2024 1:36 PM T [facility] Monocyte Absolute 0.47 0.15 - 1.00 x10E9/L 11/28/2024 1:36 PM [facility] Eosinophil Absolute 0.29 0.00 - 0.60 x10E9/L 11/28/2024 1:36 PM [facility] Basophil Absolute 0.02 0.00 - 0.13 x10E9/L 11/28/2024 1:36 PM [facility] Blood BLOOD SPECIMEN / Unknown Lab Venipuncture / Unknown 11/28/2024 1:12 PM CDT 11/28/2024 1:29 PM CDT us Jolanta Williamson RABBLER-CATERPILLAR OPERATOR LAB - HEMATOLOGY ORDERABLES Final Result [facility] [address] [place] [phone], [facility] [phone] * (ABNORMAL) COMPREHENSIVE METABOLIC PANEL (11/28/2024 1:12 PM CDT) BUN 11 7 - 26 mg/dL 11/28/2024 1:59 PM [facility] Creatinine 0.83 0.71 - 1.16 mg/dL 11/28/2024 1:59 PM [facility] Sodium 142 136 - 145 mmol/L 11/28/2024 1:59 PM [facility] Potassium 4.2 3.5 - 4.5 mmol/L 11/28/2024 1:59 PM [facility] Chloride 103 98 - 107 mmol/L 11/28/2024 1:59 PM [facility] CO2 27 22 - 29 mmol/L 11/28/2024 1:59 PM [facility] Glucose 89 70 - 99 mg/dL 11/28/2024 1:59 PM [facility] Calcium 9.8 8.4 - 10.2 mg/dL 11/28/2024 1:59 PM [facility] Protein Total 7.4 6.0 - 8.3 g/dL 11/28/2024 1:59 PM [facility] Albumin 5.2(H) 3.4 - 5.0 g/dL 11/28/2024 1:59 PM [facility] Bilirubin Total 0.9 0.2 - 1.2 mg/dL 11/28/2024 1:59 PM [facility] Alkaline Phosphatase 81 40 - 150 U/L 11/28/2024 1:59 PM [facility] ALT 21 5 - 55 U/L 11/28/2024 1:59 PM [facility] AST 17 5 - 34 U/L 11/28/2024 1:59 PM [facility] Anion Gap 12 6 - 16 11/28/2024 1:59 PM [facility] BUN/Creatinine Ratio 13 7 - 23 11/28/2024 1:59 PM [facility] Osmolality Calculated 293 275 - 295 mOsm/kg 11/28/2024 1:59 PM [facility] Albumin/Globulin Ratio 2.4(H) 1.1 - 2.3 11/28/2024 1:59 PM [facility] eGFR by CKD-EPI >90 >=90 mL/min/1.7 3 m2 11/28/2024 1:59 PM [facility] Blood BLOOD SPECIMEN / Unknown Lab Venipuncture / Unknown 11/28/2024 1:12 PM CDT 11/28/2024 1:29 PM CDT Jolanta Williamson [facility] - CHEMI[facility]Y ORDERABLES Final Result [address] [address], [place] [phone] * HEPATITIS B CORE ANTIBODY TOTAL (11/28/2024 1:12 PM CDT) HBc Antibody Total Non-reacti ve Non-reacti ve 11/28/2024 2:19 PM CDT [facility] Blood BLOOD SPECIMEN / Unknown Lab Venipuncture / Unknown 11/28/2024 1:12 PM CDT 11/28/2024 1:24 PM CDT Jolanta Williamson [facility] - CHEMISTRY ORDERABLES Final Result Performing Organization Address [facility]/ZIP Co de Phone Number [address] [address], [place] [phone] * HEPATITIS B SURFACE ANTIGEN W RFLX CONFIRMATION (11/28/2024 1:12 PM CDT) Hepatitis B Virus Surface Antigen Non-reacti ve Non-reacti ve 11/28/2024 2:19 PM CDT [facility] Blood BLOOD SPECIMEN / Unknown Lab Venipuncture / Unknown 11/28/2024 1:12 PM CDT 11/28/2024 1:24 PM CDT Jolanta Williamson [facility] - CHEMISTRY ORDERABLES Final Result [address] [address], [place] [phone] * CT Chest W Contrast (11/28/2024 12:33 PM CDT) Anatomical Region Laterality Modality Chest Computed Tomogra phy 11/28/2024 3:33 PM CDT Impressions 11/28/2024 9:13 PM CDT Impression: 1.Resolution of previously seen cavitary lesions in the right upper lobe with residual scarring. No new lesions are seen. 2.Redemonstrated postsurgical changes right lower lobe lobectomy. > Dictated by Johanna Kraft MD, (School Bus Driver). IKenny MD have personally reviewed and interpreted this examination/study. 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 > Dictated by Johanna Kraft MD, (School Bus Driver). I, Kenny Mcnamara MD have personally reviewed and interpreted this examination/study. > Interpreting Provider: Kenny Mcnamara MD on 11/28/2024 9:[address] [facility] [address] ORDERABLES Final Result * CREATININE - POCT INTERFACED (11/28/2024 12:20 PM CDT) Creatinine POCT 0.61 0.30 - 1.30 mg/dL 11/28/2024 12:25 PM CDT [facility] eGFR >90 >=90 mL/min/1.7 3 m2 11/28/2024 12:25 PM CDT [facility] Blood BLOOD SPECIMEN / Unknown 11/28/2024 12:20 PM CDT 11/28/2024 12:25 PM CDT Romel Roberts MD LAB - POINT OF CARE ORDERABLES Final Result [facility] [address] [place] [phone], [facility] [phone] * (ABNORMAL) URINALYSIS W/MICROSCOPIC REFLEX TO CULTURE (10/17/2024 11:54 AM DIRECTOR OF RESTAURANTS) Color UA Yellow Straw, Yellow 10/17/2024 12:47 PM [facility] Clarity UA Slt Cloudy(A) Clear 10/17/2024 12:47 PM [facility] Specific [place] UA 1.027 1.005 - 1.030 10/17/2024 12:47 PM [facility] pH UA 5.0 5.0 - 8.0 pH 10/17/2024 12:47 PM [facility] Protein UA Negative Negative 10/17/2024 12:47 PM [facility] Glucose UA Negative Negative 10/17/2024 12:47 PM [facility] Ketone UA Negative Negative 10/17/2024 12:47 PM [facility] Bilirubin UA Negative Negative 10/17/2024 12:47 PM [facility] Blood UA Negative Negative 10/17/2024 12:47 PM [facility] Nitrite UA Negative Negative 10/17/2024 12:47 PM [facility] Leukocyte Esterase Negative Negative 10/17/2024 12:47 PM [facility] Urobilinogen UA Negative Negative mg/dL 10/17/2024 12:47 PM [facility] RBC UA 0-2 None Seen, 0-2, 3-5 /HPF 10/17/2024 12:47 PM [facility] WBC UA 0-5 None Seen, 0-5 /HPF 10/17/2024 12:47 PM [facility] Squamous Epithelial Cells UA None Seen None Seen, 0-2, 3-5 /HPF 10/17/2024 12:47 PM [facility] Mucus UA 4+ /LPF 10/17/2024 12:47 PM [facility] Urine URINE SPECIMEN OBTAINED BY CLEAN CATCH PROCEDURE / Unknown Collection / Unknown 10/17/2024 11:54 AM [employer] OF RESTAURANTS 10/17/2024 12:17 PM [employer]OR OF RESTAURANTS Narrative [facility] - 10/17/2024 12:47 PM DIRECTOR OF RESTAURANTS Culture Not Indicated Romel Roberts MD LAB - URINALYSIS ORDERABLES Fi nal Result Performing Organization Address [facility]/ZIP Co de Phone Number [address] [address], [facility] [phone] * HEPATITIS C AB SCREEN RFLX NAAT QUANT (04/26/2023 4:06 PM CDT) Hepatitis C Antibody Non-react july Non-reac tive 04/26/2023 6:59 PM CDT [facility] Comment:Hepatitis C Antibody screen indicates no [...] LAB - CHEMISTRY ORDER GINO Final Result Performing Organization Address [facility] Co de Phone Number [address] [address], [facility] [phone] * HIV-1 HIV-2 ANTIBODY + HIV P24 AG PANEL (04/26/2023 4:06 PM CDT) HIV Antigen/Antibod y 1 & 2 Non-reacti ve Non-react july 04/26/2023 6:59 PM CDT [facility] Comment:No Laboratory eviden ce of HIV infection. Blood BLOOD SPECIMEN / Unknown Lab Venipuncture / Unknown 04/26/2023 4:06 PM CDT 04/26/2023 4:49 PM CDT John Krueger MD LAB - CHEMISTRY ORDER GINO Final Result [facility] [address] [place] [address], [place] [phone] from Last 3 Months or Most Recently [...] 10:14 AM 05/13/2023 12:08 PM Care Teams Textile Chemist Relationship Specialty Start Date End Date Kurtis Goins MD [address] [place] [address] PCP - General Family Medicine 04/22/23
--- OUTSIDE RECORDS SUMMARY | 2024-12-23 22:52 | XMS_ITS | Referral Summary ---
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
--- OUTSIDE RECORDS SUMMARY | 2024-12-23 22:52 | XMS_ITS | Clinical Summary ---
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
--- OUTSIDE RECORDS SUMMARY | 2024-12-23 22:52 | XMS_ITS | Encounter Summary ---
Author Organization [facility] Address [address] [place] [address] Care Team Providers Care Head Banquet Waitress Name Role Phone Kurtis Goins MD Primary Care Provider [phone] Encounter Details Date Type Department Care Team (Late st Contact Info) Description 05/20/2023 Telephone [facility] - Centralized Scheduling [address] [place] [address] Romel Roberts MD [address] [facility] [place] [address] Social History Tobacco Use Types Packs/Day Years [...] and heating? Not hard at all 04/22/2023 [facility] of Occupat ional Health - Occupational Stress [...] or slept in a half-way (including now)? Yes 04/22/2023 Sex and Gender Information Value Date Recorded Sex Assigned at Not on file Legal Sex Male 5:39 AM DIRECTOR MEDIA Gender Identity Not on file Sexual Orientation [...] Description 12/26/2024 12:15 PM CDT Hospital Encounter [facility] [address] [place] [address] Lorena Watkins MD [address] [place] [address] [address] [place] [address] Surgery General 12/26/2024 12:15 PM CDT - 12/26/2024 12:45 PM CDT Surgery [facility] [address] [place] [address] Lorena Watkins MD [address] [place] [address] [address] [place] [address] EGD w/ tina 01/15/2025 1:30 PM CDT Office Visit [facility] - ENT [address] [place] [address] [place] [phone] Emiliano Tilley MD [address] [place] [address] [place] [address] 01/16/2025 11:00 AM CDT Office Visit [facility] - Infectious Disease [address] [place] [address], [place] [address] Romel Roberts MD [address] [place] [address] [place] [address] 03/06/2025 11:30 AM CDT Office Visit [facility] [address] [place] [address] [place] [address] Jolanta Williamson, ACUTE CARE NURSING ASSISTANT-BIOMETRICS INSTRUCTOR [address] [place] [address] 04/03/2025 11:00 AM CDT Office Visit [facility] - Allergy [address] [facility], [place] [address] Kolby Meng MD [address] [place] [address] Scheduled Procedures Name Priority Associated Diagnoses Date/Ti nv ESOPHAGOGASTRODUODENOSCOPY ( EGD) DIAGNOSTIC Esophagitis 12/26/2024 12:15 PM CDT documented as of this encounter Visit Diagnoses Not on filedocumented in this encounter Care Teams Head Banquet Waitress Relationship Specialty Start Date End Date Kurtis Goins MD [address] [place] [address] PCP - General Family Medicine 04/22/23 documented as of this encounter
[2024-12-23 23:18] LABS: Basophils Percent Auto 0.3 % (0.2-1.2); Eosinophils Absolute Auto 0.3 K/mm3 (0-0.3); Eosinophils Percent Auto 4.5 % (0-4.4); Hematocrit 46.2 % (42.0-52.0); Hemoglobin 16.2 g/dL (14.0-18.0); Immature Granulocyte Absolute 0.01 K/mm3 (0.00-0.031); Immature Granulocyte Percent A 0.2 % (0-0.5); Lymphocytes Absolute Auto 2.14 K/mm3 (0.9-3.2); Lymphocytes Percent Auto 35.3 % (18.3-44.2); Mean Corpuscular HGB Conc 35.1 g/dl (32-36); Mean Corpuscular Hemoglobin 33.6 pg (26-34); Mean Corpuscular Volume 95.9 fl (80-100); Mean Platelet Volume 9.7 fl (7.4-10.4); Monocytes Absolute Auto 0.5 K/mm3 (0.1-0.6); Monocytes Percent Auto 8.3 % (2.6-8.5); Neutrophils Absolute Auto 3.1 K/mm3 (1.3-6.7); Neutrophils Percent Auto 51.4 % (45.5-73.1); Platelet Count Result 288 k/mm3 (150-375); Red Blood Count 4.82 M/mm3 (4.6-6.20); Red Cell Distribution Width 12.5 % (11.5-14.5); White Blood Count 6.1 K/mm3 (4.5-10.0)
[2024-12-23 23:24] LABS: Alanine Aminotransferase 75 U/L (6-50); Albumin Level 5.2 g/dL (3.5-5.1); Alkaline Phosphatase 81 U/L (38-126); Anion Gap 9 mmol/L (4-12); Aspartate Amino Transferase 43 U/L (17-59); Bilirubin,Total 0.5 mg/dL (0.2-1.3); Blood Urea Nitrogen 11 mg/dL (9-20); Calcium 9.7 mg/dL (8.4-10.2); Carbon Dioxide 35 mmol/L (22-30); Chloride 101 mmol/L (98-107); Estimated CRCL calculation 107 ml/min; Estimated Glomerular Filt Rate > 60; Glucose 112 mg/dL (65-110); Lipase 67 U/L (23-300); Sodium 145 mmol/L (137-145)
--- OUTSIDE RECORDS SUMMARY | 2024-12-23 23:32 | XMS_ITS | Clinical Summary ---
Author Organization [facility] [employer] Address [address] [place] [address] Care Team Providers Care Casing Tester Name Role Phone Kurtis Goins MD Primary Care Provider [phone] Source Comments [facility] [employer],non-owned Affiliates and Associated Physician Practices is amultiple site organization consisting of ambulatory clinics and hospital sitesin [place], [place], [place] and [place]. This disclosure is being madepursuant to the Care Everywhere program and may not contain all information available regarding this patient. Last updated 18.[facility] [employer] Allergies Active Allergy Reactions Criticality Noted Date [...] Department Care Team Description 12/18/2024 Patient Outreach [facility] [address] [place] [phone] Deana Cannon RN Pre-op Instructions 12/17/2024 Travel 12/12/2024 Telephone [facility] [address] [place] [address] [phone] Marlene Ray, PharmD Medication Prior Auth Request 12/11/2024 Telephone [facility] [address] [place] [address] [phone] Jolanta Williamson APRN-CNP Medication Problem 12/11/2024 Telephone [facility] [address] [place] [address] [phone] Cyril An, air shovel operator Issue 12/11/2024 Refill [facility] [address] [place] [phone] Cyril An, JACQUARD TWINE POLISHER OPERATOR REFILL 12/10/2024 Refill [facility] - Nephrology [address] [place] [address] [phone] Jolanta Williamson APRN-CNP MEDICATION REFILL 12/10/2024 Orders Only [facility] [address] [place] [phone] Jolanta Williamson APRN-CNP Eosinophilic esophagitis 12/10/2024 Refill [facility] [address] [place] [phone] Cyril nA, SHARONDA Encounter Opened In Error 12/06/2024 Telephone [facility] - Nephrology [address] [place] [address] [phone] Rebecca Tomlinson, SHARONDA Concerns 12/06/2024 Travel 12/04/2024 Telephone [facility] [address] [place] [phone] Cyril An, RN Follow-up 12/04/2024 Patient Outreach [facility] [address] [place] [phone] Bhumika Luna RN 12/04/2024 Orders Only [facility] [address] [place] [address] [phone] Jolanta Williamson APRN-CNP Esophagitis determined by endoscopy 12/04/2024 Telephone [facility] [address] [place] [phone] Jolanta Williamson APRN-CNP Follow-up 11/29/2024 Orders Only [facility] - [facility] [address] [place] [phone] Jolanta Williamson APRN-CNP Esophagitis determined by endoscopy 11/28/2024 12:37 PM CDT - 11/28/2024 11:59 PM CDT Hospital Encounter [facility] OP DRAW STATION [address] [place] [address] Romel Roberts MD Discharge Disposition: Home or Self Care 11/28/2024 12:00 PM CDT - 11/28/2024 12:36 PM CDT Hospital Encounter [facility] CAT SCAN [address] [place] [address] Romel Roberts MD Discharge Disposition: Home or Self Care 11/28/2024 11:30 AM CDT Office Visit [facility] - [facility] [address] [place] [phone] Jolanta Williamson APRN-CNP Esophagitis determined by endoscopy (Primary Dx); Admission for therapeutic drug monitoring; Immunosuppression due to drug therapy (HCC) 11/28/2024 Travel 10/17/2024 11:00 AM FUNCTIONAL ANALYST Office Visit [facility] - Infectious Disease [address] [place] [phone] Romel Roberts MD 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 No 11/28/2023 Sex and Gender Information Value Date Recorded Sex Assigned at Not on file Legal Sex Male 5:39 AM FUNCTIONAL ANALYST Gender Identity Not on file Sexual Orientation Not on file Last Filed Vital Signs Vital Sign Reading Time Taken Comments Blood Pressure 125/81 11/28/2024 11:37 AM CDT Pulse 54 11/28/2024 11:37 AM CDT Temperature 36.6 C (97.9 F) 11/28/2024 11:37 AM CDT Respiratory Rate 16 10/17/2024 10:45 AM FUNCTIONAL ANALYST Oxygen Saturation 100% 11/28/2024 11:37 AM CDT [...] Description 12/26/2024 12:15 PM CDT Hospital Encounter [facility] [address] [place] [phone] Lorena Watkins MD [address] [place] [address] [address] [place] [phone] Surgery General 12/26/2024 12:15 PM CDT - 12/26/2024 12:45 PM CDT Surgery [facility] [address] [place] [phone] Lorena Watkins MD [address] [place] [address] [address] [place] [phone] EGD w/ tina 01/15/2025 1:30 PM CDT Office Visit [facility] - ENT [address] [place] [phone] Emiliano Tilley MD [address] [place] [address] [place] [address] 01/16/2025 11:00 AM CDT Office Visit [facility] - Infectious Disease [address] [place] [address], [place] [phone] Romel Roberts MD [address] [place] [address] [place] [address] 03/06/2025 11:30 AM CDT Office Visit [facility] - GI [address] [place] [address] [place] [phone] Jolanta Williamson, SUPERINTENDENT CONTAINER TERMINAL-CAFE TEAM MEMBER [address] [place] [phone] 04/03/2025 11:00 AM CDT Office Visit [facility] - Allergy [address] [place] [address], [place] [phone] Kolby Meng MD [address] [place] [phone] Scheduled Procedures Name Priority Associated Diagnoses Date/Ti [...] REFLEX TO CULTURE Routine 10/17/2024 11:54 AM FUNCTIONAL ANALYST 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 Eosinophilic esophagitis HEPATITIS C AB SCREEN RFLX NAAT QUANT Routine 04/26/2023 4:06 PM CDT HIV-1 HIV-2 ANTIBODY + HIV P24 AG PANEL Routine 04/26/2023 4:06 PM CDT from Last 3 Months or Most Recently Relevant to Health Maintenance Results * QUANTIFERON-TB GOLD PLUS 4-TUBE (11/28/2024 1:12 PM CDT) [facility] QuantiFERON Mitogen Minus NIL 9.98 IU/mL 12/01/2024 12:40 AM CDT [facility]) QuantiFERON Nil Value 0.02 IU/mL 12/01/2024 12:40 AM CDT [facility]) QuantiFERON Plus TB1 Minus NIL 0.01 <=0.34 IU/mL 12/01/2024 12:40 AM CDT [facility]) QuantiFERON Plus TB2 Minus NIL 0.01 <=0.34 IU/mL 12/01/2024 12:40 AM CDT [facility]) QuantiFERON-TB Gold Plus Negative Negative 12/01/2024 12:40 AM CDT [facility] ([facility]) Comment: INTERPRETIVE INFORMATION:Quantiferon TB Gold Plus [...] Mycobacterium tuberculosis Infection -- [place], 2010 (http://www.cdc.gov/mmwr/preview/mmwrhtml/jc9503a4.htm), for more information concerning test performance in low-prevalence populations and use in occupational screening. Performed By: [employer] [address] [place] [address] Optical Goods Worker: Flako Pascual MD, PhD CLIA Number: [id number] Blood BLOOD SPECIMEN / Unknown Lab Venipuncture / Unknown 11/28/2024 1:12 PM CDT 11/28/2024 1:24 PM CDT Jolanta Williamson SUPERINTENDENT CONTAINER TERMINAL-CAFE TEAM MEMBER LAB - CHEMISTRY ORDERABLES Final Result [facility] [employer] ([facility]) [address] [place] [address] * (ABNORMAL) HEPATITIS B SURFACE ANTIBODY QUANT (11/28/2024 1:12 PM CDT) Hepatitis B Virus Surface Antibody Reactive( A) Non-react july 11/28/2024 2:19 PM CDT [facility] Comment: > 12 mIU/mL Hepatitis B surface Antibody (HBsAb). Reactive for HBsAb - individual is considered immune to Hepatitis B Virus infection. Hepatitis B Surface Antibody Quantitative 110.0(H) <8.0 mIU/mL 11/28/2024 2:19 PM CDT [facility] Comment: Hepatitis B Surface Antibody Numeric Result Interpretation: Nonreactive: <8.0 mIU/mL Indeterminate: 8.0 - 12.0 mIU/mL Reactive: >12.0 mIU/mL Blood BLOOD SPECIMEN / Unknown Lab Venipuncture / Unknown 11/28/2024 1:12 PM CDT 11/28/2024 1:24 PM CDT [facility] - 11/28/2024 2:19 PM CDT This assay should not be used for blood, plasma, or tissue donor screening. This assay is not recommended for neonates born to HBV-infected or suspected HBV-infected mothers. Jolanta Williamson SUPERINTENDENT CONTAINER TERMINAL-CAFE TEAM MEMBER LAB - SEROLOGY O RDERABLES Final Result [facility] [address] [place] [address], [facility] [phone] * (ABNORMAL) CBC W/ DIFFERENTIAL (11/28/2024 1:12 PM CDT) WBC 5.4 4.0 - 10.7 x10E9/L 11/28/2024 1:36 PM [facility] RBC Count 4.78 4.30 - 5.80 x10E12/L 11/28/2024 1:36 PM [facility] Hemoglobin 15.9 13.3 - 17.5 g/dL 11/28/2024 1:36 PM [facility] Hematocrit 43.5 38.7 - 51.1 % 11/28/2024 1:36 PM [facility] MCV 91.0 80.0 - 98.0 fL 11/28/2024 1:36 PM [facility] MCH 33.3 26.7 - 33.6 pg 11/28/2024 1:36 PM T [facility] MCHC 36.6(H) 31.7 - 36.3 g/dL 11/28/2024 1:36 PM T [facility] RDW-CV 12.7 11.3 - 14.8 % 11/28/2024 1:36 PM [facility] Platelet Count 247 150 - 420 x10E9/L 11/28/2024 1:36 PM [facility] MPV 10.0 7.8 - 11.4 fL 11/28/2024 1:36 PM T [facility] Neutrophil % 51.0 41.0 - 74.0 % 11/28/2024 1:36 PM CDT [facility] Lymphocyte % 34.2 17.0 - 47.0 % 11/28/2024 1:36 PM T [facility] Monocyte % 8.8 3.0 - 11.0 % 11/28/2024 1:36 PM T [facility] Eosinophil % 5.4 0.0 - 7.0 % 11/28/2024 1:36 PM T [facility] Basophil % 0.4 0.0 - 1.6 % 11/28/2024 1:36 PM T [facility] Immature Granulocytes % 0.2 0.0 - 1.0 % 11/28/2024 1:36 PM [facility] Neutrophil Absolute 2.73 1.60 - 7.50 x10E9/L 11/28/2024 1:36 PM [facility] Lymphocyte Absolute 1.83 1.00 - 4.40 x10E9/L 11/28/2024 1:36 PM T [facility] Monocyte Absolute 0.47 0.15 - 1.00 x10E9/L 11/28/2024 1:36 PM [facility] Eosinophil Absolute 0.29 0.00 - 0.60 x10E9/L 11/28/2024 1:36 PM [facility] Basophil Absolute 0.02 0.00 - 0.13 x10E9/L 11/28/2024 1:36 PM [facility] Blood BLOOD SPECIMEN / Unknown Lab Venipuncture / Unknown 11/28/2024 1:12 PM CDT 11/28/2024 1:29 PM CDT us Jolanta Williamson SUPERINTENDENT CONTAINER TERMINAL-CAFE TEAM MEMBER LAB - HEMATOLOGY ORDERABLES Final Result [facility] [address] [place] [address], [facility] [phone] * (ABNORMAL) COMPREHENSIVE METABOLIC PANEL (11/28/2024 1:12 PM CDT) BUN 11 7 - 26 mg/dL 11/28/2024 1:59 PM [facility] Creatinine 0.83 0.71 - 1.16 mg/dL 11/28/2024 1:59 PM [facility] Sodium 142 136 - 145 mmol/L 11/28/2024 1:59 PM [facility] Potassium 4.2 3.5 - 4.5 mmol/L 11/28/2024 1:59 PM [facility] Chloride 103 98 - 107 mmol/L 11/28/2024 1:59 PM [facility] CO2 27 22 - 29 mmol/L 11/28/2024 1:59 PM [facility] Glucose 89 70 - 99 mg/dL 11/28/2024 1:59 PM [facility] Calcium 9.8 8.4 - 10.2 mg/dL 11/28/2024 1:59 PM [facility] Protein Total 7.4 6.0 - 8.3 g/dL 11/28/2024 1:59 PM [facility] Albumin 5.2(H) 3.4 - 5.0 g/dL 11/28/2024 1:59 PM [facility] Bilirubin Total 0.9 0.2 - 1.2 mg/dL 11/28/2024 1:59 PM [facility] Alkaline Phosphatase 81 40 - 150 U/L 11/28/2024 1:59 PM [facility] ALT 21 5 - 55 U/L 11/28/2024 1:59 PM [facility] AST 17 5 - 34 U/L 11/28/2024 1:59 PM [facility] Anion Gap 12 6 - 16 11/28/2024 1:59 PM [facility] BUN/Creatinine Ratio 13 7 - 23 11/28/2024 1:59 PM [facility] Osmolality Calculated 293 275 - 295 mOsm/kg 11/28/2024 1:59 PM [facility] Albumin/Globulin Ratio 2.4(H) 1.1 - 2.3 11/28/2024 1:59 PM [facility] eGFR by CKD-EPI >90 >=90 mL/min/1.7 3 m2 11/28/2024 1:59 PM [facility] Blood BLOOD SPECIMEN / Unknown Lab Venipuncture / Unknown 11/28/2024 1:12 PM CDT 11/28/2024 1:29 PM CDT Jolanta Williamson [facility] - CHEMISTRY ORDERABLES Final Result [address] [address], [place] [phone] * HEPATITIS B CORE ANTIBODY TOTAL (11/28/2024 1:12 PM CDT) HBc Antibody Total Non-reacti ve Non-reacti ve 11/28/2024 2:19 PM CDT [facility] Blood BLOOD SPECIMEN / Unknown Lab Venipuncture / Unknown 11/28/2024 1:12 PM CDT 11/28/2024 1:24 PM CDT Jolanta Williamson [facility] - CHEMISTRY ORDERABLES Final Result Performing Organization Address [facility]/ZIP Co de Phone Number [address] [address], [place] [phone] * HEPATITIS B SURFACE ANTIGEN W RFLX CONFIRMATION (11/28/2024 1:12 PM CDT) Hepatitis B Virus Surface Antigen Non-reacti ve Non-reacti ve 11/28/2024 2:19 PM CDT [facility] Blood BLOOD SPECIMEN / Unknown Lab Venipuncture / Unknown 11/28/2024 1:12 PM CDT 11/28/2024 1:24 PM CDT Jolanta Williamson [facility] - CHEMISTRY ORDERABLES Final Result [address] [address], [place] [phone] * CT Chest W Contrast (11/28/2024 12:33 PM CDT) Anatomical Region Laterality Modality Chest Computed Tomogra phy 11/28/2024 3:33 PM CDT Impressions 11/28/2024 9:13 PM CDT Impression: 1.Resolution of previously seen cavitary lesions in the right upper lobe with residual scarring. No new lesions are seen. 2.Redemonstrated postsurgical changes right lower lobe lobectomy. > Dictated by Johanna Kraft MD, (Materials Director). IKenny MD have personally reviewed and interpreted this examination/study. > Interpreting Provider: Kenny Mcnamara MD on 11/28/2024 9:13 PM Narrative 11/28/2024 9:13 PM CDT PROCEDURE: CT CHEST W CONTRAST, DATE/TIME OF EXAM: 11/28/2024 12:33 PM, LOCATION [facility] INDICATION: B38.9: Infection due to Coccidioides [...] DATE/TIME OF EXAM: 11/28/2024 12:33 PM, LOCATION [facility] INDICATION: B38.9: Infection due to Coccidioides [...] lobectomy. > Dictated by Johanna Kraft MD, (Materials Director). I, Kenny Mcnamara MD have personally reviewed and interpreted this examination/study. > Interpreting Provider: Kenny Mcnamara MD on 11/28/2024 9:13 PM [facility] CT ORDERABLES Final Result * CREATININE - POCT INTERFACED (11/28/2024 12:20 PM CDT) Creatinine POCT 0.61 0.30 - 1.30 mg/dL 11/28/2024 12:25 PM CDT [facility] eGFR >90 >=90 mL/min/1.7 3 m2 11/28/2024 12:25 PM CDT [facility] Blood BLOOD SPECIMEN / Unknown 11/28/2024 12:20 PM CDT 11/28/2024 12:25 PM CDT Romel Roberts MD LAB - POINT OF CARE ORDERABLES Final Result [facility] [address] [place] [address], [facility] [phone] * (ABNORMAL) URINALYSIS W/MICROSCOPIC REFLEX TO CULTURE (10/17/2024 11:54 AM FUNCTIONAL ANALYST) Color UA Yellow Straw, Yellow 10/17/2024 12:47 PM [facility] Clarity UA Slt Cloudy(A) Clear 10/17/2024 12:47 PM [facility] Specific [place] UA 1.027 1.005 - 1.030 10/17/2024 12:47 PM [facility] pH UA 5.0 5.0 - 8.0 pH 10/17/2024 12:47 PM [facility] Protein UA Negative Negative 10/17/2024 12:47 PM [facility] Glucose UA Negative Negative 10/17/2024 12:47 PM [facility] Ketone UA Negative Negative 10/17/2024 12:47 PM [facility] Bilirubin UA Negative Negative 10/17/2024 12:47 PM [facility] Blood UA Negative Negative 10/17/2024 12:47 PM [facility] Nitrite UA Negative Negative 10/17/2024 12:47 PM [facility] Leukocyte Esterase Negative Negative 10/17/2024 12:47 PM [facility] Urobilinogen UA Negative Negative mg/dL 10/17/2024 12:47 PM [facility] RBC UA 0-2 None Seen, 0-2, 3-5 /HPF 10/17/2024 12:47 PM [facility] WBC UA 0-5 None Seen, 0-5 /HPF 10/17/2024 12:47 PM [facility] Squamous Epithelial Cells UA None Seen None Seen, 0-2, 3-5 /HPF 10/17/2024 12:47 PM [facility] Mucus UA 4+ /LPF 10/17/2024 12:47 PM [facility] Urine URINE SPECIMEN OBTAINED BY CLEAN CATCH PROCEDURE / Unknown Collection / Unknown 10/17/2024 11:54 AM FUNCTIONAL ANALYST 10/17/2024 12:17 PM FUNCTIONAL ANALYST Narrative [facility] - 10/17/2024 12:47 PM FUNCTIONAL ANALYST Culture Not Indicated Romel Roberts MD LAB - URINALYSIS ORDERABLES Fi nal Result Performing Organization Address [facility]/ZIP Co de Phone Number [address] [address], [facility] [phone] * HEPATITIS C AB SCREEN RFLX NAAT QUANT (04/26/2023 4:06 PM CDT) Hepatitis C Antibody Non-react july Non-reac tive 04/26/2023 6:59 PM CDT [facility] Comment:Hepatitis C Antibody screen indicates no [...] ORDER GINO Final Result Performing Organization Address [facility] Co de Phone Number [address] [address], [facility] [phone] * HIV-1 HIV-2 ANTIBODY + HIV P24 AG PANEL (04/26/2023 4:06 PM CDT) HIV Antigen/Antibod y 1 & 2 Non-reacti ve Non-react july 04/26/2023 6:59 PM CDT [facility] Comment:No Laboratory eviden ce of HIV infection. Blood BLOOD SPECIMEN / Unknown Lab Venipuncture / Unknown 04/26/2023 4:06 PM CDT 04/26/2023 4:49 PM CDT John Krueger MD LAB - CHEMISTRY ORDER GINO Final Result [facility] [address] [place] [address], [place] [phone] from Last 3 Months or Most Recently [...] 10:14 AM 05/13/2023 12:08 PM Care Teams Casing Tester Relationship Specialty Start Date End Date Kurtis Goins MD [address] [place] [address] PCP - General Family Medicine 04/22/23
--- OUTSIDE RECORDS SUMMARY | 2024-12-23 23:32 | XMS_ITS | Encounter Summary ---
Author Organization [facility] Health Address [address] [facility] [place] [address] Care Team Providers Care File Clerk Data Entry Name Role Phone Kurtis Goins MD Primary Care Provider [phone] Reason for Visit * Reason Onset Date Comments Med Question 05/23/2023 Encounter Details Date Type Department Care Team (Late st Contact Info) Description 05/23/2023 Telephone [facility] - Centralized Scheduling [address] [place] [address] Romel Roberts MD [address] [facility] OF [place] [address] Med Question Social History Tobacco Use Types [...] 04/22/2023 [facility] [place] of Occupat ional Health - Occupational Stress [...] on file 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 Gender Identity Not on file Sexual Orientation [...] Hospital Encounter [facility] [address] [place] [address] Lorena Watkins MD [address] [place] [address] [address] [place] [phone] Surgery General 12/26/2024 12:15 PM CDT - 12/26/2024 12:45 PM CDT Surgery [facility] [address] [place] [phone] Lorena Watkins MD [address] [place] [address] [address] [place] [address] EGD jay/ tina 01/15/2025 1:30 PM CDT Office Visit [facility] - ENT [address] [place] [phone] Emiliano Tilley MD [address] [place] [address] DEPT [place] [address] 01/16/2025 11:00 AM CDT Office Visit [facility] - Infectious Disease [address] [place] [address], [place] [address] Romel Roberts MD [address] [place] [address] DIV OF INF[place] [address] 03/06/2025 11:30 AM CDT Office Visit [facility] - GI [address] [place] [address], [place] [address] Jolanta Williamson, [facility] [address] [place] [phone] 04/03/2025 11:00 AM CDT Office Visit [facility] - Allergy [address] [place] [phone] Kolby Meng MD [address] [place] [address] Scheduled Procedures Name Priority Associated Diagnoses Date/Ti me ESOPHAGOGASTRODUODENOSCOPY ( EGD) DIAGNOSTIC Esophagitis 12/26/2024 12:15 PM CDT documented as of this encounter Visit Diagnoses Not on filedocumented in this encounter Care Teams File Clerk Data Entry Relationship Specialty Start Date End Date Kurtis Goins MD [address] [place] [address] PCP - General Family Medicine 04/22/23 documented as of this encounter
--- OUTSIDE RECORDS SUMMARY | 2024-12-23 23:32 | XMS_ITS | Referral Summary ---
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
--- OUTSIDE RECORDS SUMMARY | 2024-12-23 23:32 | XMS_ITS | Encounter Summary ---
Author Organization [facility] Health Address [address] [place] [address] Care Team Providers Care Shoe Parts Molder Name Role Phone Kurtis Goins MD Primary Care Provider [phone] Encounter Details Date Type Department Care Team (Late st Contact Info) Description 05/20/2023 Telephone [facility] - Centralized Scheduling [address] [place] [address] Romel Roberts MD [address] [facility] [address] [place] [address] Social History Tobacco Use Types Packs/Day Years [...] and heating? 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 Gender Identity Not on file Sexual Orientation [...] Description 12/26/2024 12:15 PM CDT Hospital Encounter [facility] [address] [place] [address] Lorena Watkins MD [address] [place] [address] [address] [place] [address] Surgery General 12/26/2024 12:15 PM CDT - 12/26/2024 12:45 PM CDT Surgery [facility] [address] [place] [address] Lorena Watkins MD [address] [place] [address] [address] [place] [address] EGD w/ tina 01/15/2025 1:30 PM CDT Office Visit [facility] - ENT [address] [place] [address] [place] [id number] Emiliano Tilley MD [address] [place] [address] [place] [address] 01/16/2025 11:00 AM CDT Office Visit [facility] - Infectious Disease [address] [place] [address], [place] [address] Romel Roberts MD [address] [place] [address] [place] [address] 03/06/2025 11:30 AM CDT Office Visit [facility] - GI [address] [place] [address] [place] [address] Jolanta Williamson, CAR MOVER-CRANE MAN [address] [place] [address] 04/03/2025 11:00 AM CDT Office Visit [facility] - Allergy [address] [facility] [place] [address] Kolby Meng MD [address] [place] [address] Scheduled Procedures Name Priority Associated Diagnoses Date/Ti ok ESOPHAGOGASTRODUODENOSCOPY ( EGD) DIAGNOSTIC Esophagitis 12/26/2024 12:15 PM CDT documented as of this encounter Visit Diagnoses Not on filedocumented in this encounter Care Teams Shoe Parts Molder Relationship Specialty Start Date End Date Kurtis Goins MD [address] [place] [address] PCP - General Family Medicine 04/22/23 documented as of this encounter
--- OUTSIDE RECORDS SUMMARY | 2024-12-23 23:32 | XMS_ITS | Clinical Summary ---
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
[2024-12-23 23:34] LABS: Add Urine Microscopic? YES; Appearance Urine Clear (Clear); Bilirubin Urine 2+ (Negative); Blood Urine Negative (Negative); Color Urine Dark Yellow (Yellow); Glucose Urine UA Negative (Negative); Ketones Urine Trace mg/dL (Negative); Leukocyte Esterase Ur Negative LEU/UL (Negative); Nitrate Urine Negative (Negative); Protein Urine Trace mg/dL (Negative); Specific Grav Ur 1.028 (1.001-1.035)
[2024-12-23 23:37] LABS: Bacteria Urine None Seen /hpf; RBC Urine 0-2 /hpf (0-2); Squamous Epithelial Cell Urine None Seen /hpf (Few); WBC Urine 0-5 /hpf (0-3)
[2024-12-23] MEDS: HYDROmorphone HCL INJ (*CRX) 2 MG/ML VIAL 0.5 MG IV PUSH (23:53)
[2024-12-23] MEDS: ONDANSETRON INJ 4 MG/2 ML VIAL (23:58)
--- NOTE | 2024-12-24 00:02 | ED.GENADULT ---
HPI - General Adult General Chief complaint: Abdominal Pain Stated complaint: Upper abdominal pain Time Seen by Provider: 12/23/24 23:12 History of Present Illness HPI narrative: This is a 29-year-old male with history of eosinophilic esophagitis and valley fever presenting for epigastric pain. Pain is been going on for approximately 2 weeks. It is a burning pain in the epigastric region that radiates to the upper left and right part of his abdomen. It was triggered after eating a smash burger earlier today. Patient took a [place] at home in by time he arrived here he is actually feeling improved. Patient is scheduled for an outpatient HIDA scan, right upper quadrant ultrasound and scope in the next 3 days. Patient is on Dupilumab for his EOE and says he has been told not to take Pepcid Tums or omeprazole. Patient has a history of GERD. Related Data Allergies Allergy/AdvReac Type Severity Reaction Status Date / Time sulfamethoxazole (From Allergy Mild Hives Verified 12/20/24 09:04 Sept) trimethoprim (From Septra) Allergy Mild Hives Verified 12/20/24 09:04 Penicillins AdvReac Intermediate Difficulty Verified 12/20/24 09:04 Breathing amoxicillin (From Augmentin) AdvReac Mild Difficulty Verified 12/20/24 09:04 Breathing clavulanic acid (From AdvReac Mild Difficulty Verified 12/20/24 09:04 Augmentin) Breathing PMFSH Past Medical History Medical History Pulmonary coccidioidomycosis Empyema Smoking Surgical History Surgical History 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 History of bronchoscopy H/o R VATS, bronchoscopy, and decortication 04/22/23 Family History Family History Father Hypertension Mother Hypertension Depression Social History Social History Smoking packs per day: 0 Smoking cigarettes per day: 0.0 Smoking status: Former smoker Tobacco type: cigarettes Alcohol intake: current Substance use: never Living arrangements: with family Occupation/Education: occupation Gender identity (if verbalized by the patient): Male Sexual Orientation (if Verbalized by the Patient): Straight or Heterosexual Spiritual care concerns: No Exam Narrative: APPEARANCE: No apparent distress. Head: atraumatic. EYES: EOMI, NOSE: Atraumatic NECK: Trachea midline RESPIRATORY: No increased rate of breathing CTAB CARDIOVASCULAR: RRR, no peripheral edema ABDOMINAL: Non-distended soft nontender no guarding rebound MUSCULOSKELETAl: No obvious deformities NEURO: Alert. Moving 4/4 extremities SKIN:: Warm, dry. Normal color PSYCHIATRIC: Normal affect Course Vital Signs Vital signs: Vital Signs Temperature 97.9 F 12/23/24 22:51 Pulse Rate 53 L 12/23/24 22:51 Respiratory Rate 16 12/23/24 22:51 Blood Pressure 116/66 12/23/24 22:51 Pulse Oximetry 100 12/23/24 22:51 Oxygen Delivery Room Air 12/23/24 22:51 Temperature 97.9 F 12/23/24 22:51 Pulse Rate 53 L 12/23/24 22:51 Respiratory Rate 16 12/23/24 22:51 Blood Pressure 116/66 12/23/24 22:51 Pulse Oximetry 100 12/23/24 22:51 Oxygen Delivery Room Air 12/23/24 22:51 Medical Decision Making MDM Narrative Medical decision making narrative: -Course: 29-year-old male presenting with 2 weeks of epigastric pain. Vital signs are stable. Abdominal exam is benign. Point of care ultrasound did not show a thickened gallbladder wall or any pericholecystic fluid. White count is normal. Liver enzymes normal except for a mildly elevated ALT was elevated his visit here 1 week ago. Patient received antiemetics and pain control and his pain is completely resolved. He is now tolerating p.o.. I discussed his results at length with the family they are comfortable following up at his outpatient evaluate of studies later this week including an ultrasound, HIDA scan and EGD. Patient given return precautions. -DDX includes but is not limited to: Gastritis, GERD, esophagitis, gallbladder disease, peptic ulcer disease Vital Signs Vital Signs: Vital Signs Temperature 97.9 F 12/23/24 22:51 Pulse Rate 53 L 12/23/24 22:51 Respiratory Rate 16 12/23/24 22:51 Blood Pressure 116/66 12/23/24 22:51 Pulse Oximetry 100 12/23/24 22:51 Oxygen Delivery Room Air 12/23/24 22:51 Temperature 97.9 F 12/23/24 22:51 Pulse Rate 53 L 05/11/25 22:51 Respiratory Rate 16 12/23/24 22:51 Blood Pressure 116/66 12/23/24 22:51 Pulse Oximetry 100 12/23/24 22:51 Oxygen Delivery Room Air 12/23/24 22:51 Lab Data 12/23/24 23:06 12/23/24 23:06 Labs: Lab Results 12/23/24 12/23/24 Range/Units 23:06 23:21 WBC 6.1 (4.5-10.0) K/mm3 RBC 4.82 (4.6-6.20) M/mm3 Hgb 16.2 (14.0-18.0) g/dL Hct 46.2 (42.0-52.0) % MCV 95.9 (80-100) fl MCH 33.6 (26-34) pg MCHC 35.1 (32-36) g/dl RDW 12.5 (11.5-14.5) % Plt Count 288 (150-375) k/mm3 MPV 9.7 (7.4-10.4) fl Immature Gran % (Auto) 0.2 (0-0.5) % Neut % (Auto) 51.4 (45.5-73.1) % Lymph % (Auto) 35.3 (18.3-44.2) % [place] % (Auto) 8.3 (2.6-8.5) % Eos % (Auto) 4.5 H (0-4.4) % Baso % (Auto) 0.3 (0.2-1.2) % Lymph # (Auto) 2.14 (0.9-3.2) K/mm3 [place] # (Auto) 0.5 (0.1-0.6) K/mm3 Eos # (Auto) 0.3 (0-0.3) K/mm3 Baso # (Auto) 0.0 (0.0-0.1) K/mm3 Abs Immat Gran (auto) 0.01 (0.00-0.031) K/mm3 Absolute Neuts (auto) 3.1 (1.3-6.7) K/mm3 Absolute Nucleated RBC 0.000 (0.0-0.012) K/mm3 Nucleated RBC % 0.0 (0.0-0.2) % Sodium 145 (137-145) mmol/L Potassium 4.0 (3.4-5.0) mmol/L Chloride 101 (98-107) mmol/L Carbon Dioxide 35 H (22-30) mmol/L Anion Gap 9 (4-12) mmol/L BUN 11 (9-20) mg/dL Creatinine 0.73 (0.7-1.3) mg/dL Estim Creat Clear Calc 107 ml/min Estimated GFR > 60 (59 - ) Glucose 112 H (65-110) mg/dL Calcium 9.7 (8.4-10.2) mg/dL Total Bilirubin 0.5 (0.2-1.3) mg/dL AST 43 (17-59) U/L ALT 75 H (6-50) U/L Alkaline Phosphatase 81 (38-126) U/L Total Protein 8.0 (6.3-8.2) g/dL Albumin 5.2 H (3.5-5.1) g/dL Lipase 67 (23-300) U/L Urine Color Dark yellow (Yellow) Urine Appearance Clear (Clear) Urine pH 5.0 (5.0-9.0) Ur Specific [place] 1.028 (1.001-1.035) Urine Protein Trace (Negative) mg/dL Urine Glucose (UA) Negative (Negative) mg/dL Urine Ketones Trace H (Negative) mg/dL Ur Blood (Man) Negative (Negative) Urine Nitrate Negative (Negative) Urine Bilirubin 2+ H (Negative) Urine Urobilinogen 1.0 (<2.0) mg/dL Leukocyte Esterase Rfl Negative (Negative) PAMELA/UL Urine RBC 0-2 (0-2) /hpf Urine WBC 0-5 (0-3) /hpf Ur Squamous Epith Cells None seen (Few) /hpf Urine Bacteria None seen /hpf Urine Casts 3-5 Discharge Plan Discharge Clinical Impression: Acute epigastric pain Patient Disposition: Home Condition: Stable Instructions: Antibiotic Form, Abdominal Pain (ED) Additional Instructions: He was seen emergency department for abdominal pain. Please continue taking hydrocodone as needed for pain. Use Zofran for nausea. It is important to go to your outpatient studies and obtain the ultrasound, EGD and HIDA scan. If you develop fevers, severe abdominal pain or intractable nausea vomiting please return to the ED for re-evaluation. Patient Language: [place] Prescriptions: No Action Dupixent Pen 300 mg/2 mL pen injector 300 mg subcut WEEKLY Qty: 4 0RF Cresemba 186 mg capsule 372 mg PO DAILY 28 Days Qty: 56 0RF hydrocodone-acetaminophen 10-325 mg/15 mL(15 mL) solution 7.5 ml PO Q6H PRN (Reason: pain) 3 Days Qty: 90 0RF Follow-up/Referrals: Kurtis Goins MD [Primary Care Provider] -
[2024-12-24 00:26] VITALS: BP 114/70; PULSE 60; RESP 15; O2SAT 99
== END 2024-12-24 00:28 | disposition home or self-care (01) ==
PROVIDERS: Emergency Provider Emergency Medicine; PCP Family Medicine
DX: R10.13 Epigastric pain (principal); K21.9 Gastro-esophageal reflux disease without esophagitis; K20.0 Eosinophilic esophagitis; Z87.891 Personal history of nicotine dependence; Z90.2 Acquired absence of lung [part of]
CPT/HCPCS: 36415; 80053; 81001; 83690; 85025; 96374; 99284; J1171; J2405

== ENCOUNTER 2024-12-25 11:27 | Outpatient (CLI) | payer MEDICAID, SELFPAY ==
--- NOTE | ~2024-12-25 | US_ITS ---
Limited Abdominal Sonogram: Real-time sonographic imaging of the right upper quadrant was performed. Clinical History: Abnormal findings of liver Findings: The liver appears normal with no evidence of mass lesion or bile duct dilatation. Main por rizwana vein demonstrates normal direction of flow. The gallbladder is well distended, with mild sludge b ut no definite gallstone. Gallbladder wall mildly thickened up to 5 mm. The common bile duct measures 3 mm. The visualized pancreas, aorta, and IVC are unremarkable. Impression: Gallbladder sludge with mild gallbladder wall thickening. Consider acute cholecystitis although no di stinct stone clearly identified. Correlate clinically. Reviewed, dictated and finalized at location . Impression: Gallbladder sludge with mild gallbladder wall thickening. Consider acute cholec ystitis although no distinct stone clearly identified. Correlate clinically.
== END 2024-12-25 11:28 | disposition home or self-care (01) ==
PROVIDERS: PCP Family Medicine; Visit Provider Physician Assistant
DX: R93.2 Abnormal findings on diagnostic imaging of liver and biliary tract (principal)
CPT/HCPCS: 76705

== ENCOUNTER 2025-07-25 14:51 | Outpatient (CLI) | payer MEDICAID, SELFPAY ==
--- NOTE | ~2025-07-25 | XR_ITS ---
EXAM/PROCEDURE: XR abdomen/kub 1V HISTORY: R10.A1 - Flank pain, right side COMPARISON: None available. TECHNIQUE: KUB FINDINGS: No large radiopaque gallstone seen. Moderate to large amount of stool present especially overlying the rectosigmoid region but extending to the right hemicolon. Surgical clips right upper quadrant. Lung bases appear clear. Bones appear intact. IMPRESSION: Nonspecific bowel gas pattern with no large radiopaque kidney stones seen. Large amount of stool appears to be present. Reviewed, dictated and finalized at location A. UCTION LINE MECHANIC IMPRESSION: Nonspecific bowel gas pattern with no large radiopaque kidney stones seen. Larg e amount of stool appears to be present.
[2025-07-25 15:48] LABS: Add Urine Microscopic? NO; Appearance Urine Clear (Clear); Glucose Urine UA Negative (Negative); Leukocyte Esterase Ur Negative LEU/UL (Negative); Nitrate Urine Negative (Negative); Specific Grav Ur 1.004 (1.001-1.035)
== END 2025-07-25 14:52 | disposition home or self-care (01) ==
PROVIDERS: PCP Family Medicine; Visit Provider Physician Assistant
DX: R19.5 Other fecal abnormalities (principal); D84.9 Immunodeficiency, unspecified; N39.0 Urinary tract infection, site not specified
CPT/HCPCS: 74018; 81003; 87086